=== PATIENT | female | born 1970 | race Caucasian/White ===

== ENCOUNTER 2016-05-22 17:51 | Emergency (ER) | payer OTHER | END 2016-05-22 18:49 | disposition left against medical advice (07) | LOC: UCCORT 17:51 | DX: Z53.21 Procedure and treatment not carried out due to patient leaving prior to being seen by health care provider (principal) ==

== ENCOUNTER 2016-05-24 09:47 | Emergency (ER) | payer OTHER ==
[2016-05-24 10:47] VITALS: BP 131/72
[2016-05-24] MEDS ORDERED: Ketorolac INJ* 30 MG/ML 1 ML VIAL IM ONE (10:58)
--- NOTE | 2016-05-24 11:05 | UC ---
Back Pain HPI - HPI Summary HPI Summary: Patient lifted a large dog 2 days aog, aggrevated her old back injury. felt radiating pain down left leg, went to chiropractor yesterday and the numbness has improved, pain remains along the low back bilaterally, hard to put weight on left leg. - History of Current Complaint Chief Complaint: UCBackPain Stated Complaint: BACK INJURY 05/21 Time Seen by Provider: 05/24/16 10:55 Hx Obtained From: Patient Hx Last Menstrual Period: 04/29/16 ?: No Onset/Duration: Sudden Onset, Lasting Days Timing: Constant Severity Initially: Severe Severity Currently: Moderate Pain Intensity: 6 Pain Scale Used: 0-10 Numeric Back Pain: Is Discrete @ - low back Character: Dull, Throbbing, Burning Aggravating: Movement Alleviating: Rest Associated Signs And Symptoms: Positive: Weakness - Risk Factors AAA Risk Factors: Negative TAD Risk Factors: Negative Cauda Equina Risk Factors: Negative Epidural Abscess Risk Factors: Negative - Allergies/Home Medications Allergies/Adverse Reactions: Allergies Allergy/AdvReac Type Severity Reaction Status Date / Time Sulfa Drugs Allergy Severe edema, Verified 05/24/16 10:37 discoloration, hives Bee Venom Allergy Anaphylatic Verified 05/24/16 10:37 Shock PMH/Surg Hx/FS Hx/Imm Hx Previously Healthy: Yes Endocrine History Of: Denies: Diabetes, Thyroid Disease, Hyperthyroidism, Hypothyroidism, Dyslipidemia Cardiovascular History Of: Denies: Cardiac Disorders, Hypertension, Pacemaker/ICD, Myocardial Infarction , Congestive Heart Failure, Atrial Fibrillation, Deep Vein Thrombosis, Bleeding Disorders Respiratory History Of: Denies: COPD, Asthma, Bronchitis, Pneumonia, Pulmonary Embolism GI/ History Of: Reports: Gastroesophageal Reflux Denies: Ulcer, Gastrointestinal Bleed, Gall Bladder Disease, Kidney Stones, Diverticulitis, Renal Disease, Urosepsis Neurological History Of: Reports: Migraine - X fall Denies: TIA, CVA, Dementia, Seizures Psychological History Of: Reports: Anxiety - ON MEDICATION FOR, Depression - ON MEDICATION FOR Denies: Bipolar Disorder, Schizophrenia, Post Traumatic Stress Disorder Cancer History Of: Denies: Lung Cancer, Colorectal Cancer, Breast Cancer, Prostate Cancer, Cervical Cancer Other History Of: Negative For: HIV, Hepatitis B, Hepatitis C, Anticoagulant Therapy - Surgical History Surgical History: Yes Surgery Procedure, Year, and Place: 2009 LAPAROSCOPIC CHOLECYSTECTOMY, [facility]. 2011 OVA(EGG) RETRIEVAL- SEDATION, [place]. WISDOM TEETH REMOVED, OFFICE. 2012 BALLOON SINUS SURGERY, [facility] – [place]. RIGHT HAND SX--2012 - Family History Known Family History: Positive: None, Hypertension, Diabetes - Social History Alcohol Use: Rare Substance Use Type: None Smoking Status (MU): Former Smoker Type: Cigarettes Amount Used/How Often: 1/2 PPD Length of Time of Smoking/Using Tobacco: 8 Years Have You Smoked in the Last Year: No When Did the Patient Quit Smoking/Using Tobacco: 2000 - Immunization History Most Recent Influenza Vaccination: Not the Review of Systems Constitutional: Negative Skin: Negative Eyes: Negative ENT: Negative Respiratory: Negative Cardiovascular: Negative Gastrointestinal: Negative Genitourinary: Negative Motor: Negative Neurovascular: Negative Musculoskeletal: Arthralgia, Decreased ROM - left leg, Myalgia Neurological: Negative Psychological: Negative All Other Systems Reviewed And Are Negative: Yes Physical Exam Triage Information Reviewed: Yes Appearance: Well-Nourished, Ill-Appearing, Pain Distress Vital Signs: Initial Vital Signs Temp 98 F 05/24/16 10:39 Pulse 94 05/24/16 10:39 Resp 20 05/24/16 10:39 BP 131/72 05/24/16 10:39 Pulse Ox 98 05/24/16 10:39 Vital Signs Reviewed: Yes Eye Exam: Normal Eyes: Positive: Conjunctiva Clear ENT Exam: Normal ENT: Positive: Normal ENT inspection, Hearing grossly normal, Pharynx normal, TMs normal Dental Exam: Normal Neck exam: Normal Respiratory Exam: Normal Cardiovascular Exam: Normal Abdominal Exam: Normal Musculoskeletal: Positive: No Edema, Strength Limited @ - with any pressure on right leg, ROM Limited @ - lumbar back flex and ext, Other: - pain along the lumbar spinous process Neurological: Positive: Alert, Muscle Tone Normal Psychological Exam: Normal Skin Exam: Normal Back Pain Course/Dx - Course Course Of Treatment: hx obtained, exam performed, toradol given, xray ordered. - Differential Dx/Diagnosis Differential Diagnosis/HQI/PQRI: Fracture, Herniated Disc, Strain, Sprain Provider Diagnoses: DJD. Low back pain. OA Discharge - Discharge Plan Condition: Stable Disposition: HOME Patient Education Materials: Acute Low Back Pain (ED), Lower Back Exercises (ED ) Additional Instructions: You were given a shot of Toradol today, do not use Ibuprofen products until 7 pm , continue with tylenol as needed. I recommend light stretching and range of motion exercises and progress as tolerated. Follow up with your prmary physician if symptoms do not begin to resolve in a few days.
--- NOTE | 2016-05-24 11:21 | RAD ---
Indication: Low back pain radiating into the LEFT buttock for 3 days. Sudden onset of symptoms. Comparison: December 30, 2005 Technique: AP and lateral views lumbar sacral spine Report: Normal alignment. Negative for fracture. Mild L3-L4, mild L4-L5, and moderate L5-S1 disc space narrowing with interval progression of degenerative spondylosis compared with the 2005 exam. Facet joint osteoarthritis mild in severity most prominent at L3-L4 through L5-S1. Unremarkable paraspinal soft tissue contours. RIGHT upper quadrant surgical clips. IMPRESSION: Multilevel degenerative spondylosis and facet joint osteoarthritis with progression of disease compared with the 2006 exam. Negative for fracture or spondylolisthesis.
== END 2016-05-24 11:33 | disposition home or self-care (01) ==
LOC: UCCORT 09:47
DX: M51.36 Other intervertebral disc degeneration, lumbar region (principal); M47.816 Spondylosis without myelopathy or radiculopathy, lumbar region; M54.5 Low back pain; Z88.2 Allergy status to sulfonamides; Z87.891 Personal history of nicotine dependence
CPT/HCPCS: 72100; 96372; 99212; G0463; J1885

== ENCOUNTER 2016-09-09 12:25 | Emergency (ER) | payer OTHER ==
[2016-09-09 12:56] VITALS: BP 144/92
--- NOTE | 2016-09-09 13:06 | UC ---
Throat Pain/Nasal Cirilo HPI - HPI Summary HPI Summary: sinus pain and pressure x 2 weeks + pnd, sore throat , cough, no fever, no chills - History of Current Complaint Chief Complaint: UCRespiratory Stated Complaint: CHEST CONGESTION, COUGH Time Seen by Provider: 09/09/16 12:56 Hx Obtained From: Patient Hx Last Menstrual Period: 08/19/16 ?: No Onset/Duration: Gradual Onset, Lasting Weeks - 2, Still Present Severity: Moderate Cough: Nonproductive Associated Signs & Symptoms: Positive: Sinus Discomfort, Nasal Discharge. Negative: Drooling, Wheezing, Hoarseness, Fever, Vomiting, Rash - Allergies/Home Medications Allergies/Adverse Reactions: Allergies Allergy/AdvReac Type Severity Reaction Status Date / Time Sulfa Drugs Allergy Severe edema, Verified 09/09/16 12:47 discoloration, hives Bee Venom Allergy Anaphylatic Verified 09/09/16 12:47 Shock Home Medications: Home Medications Naproxen 500 mg PO BID PRN 09/09/16 [History Confirmed 09/09/16] PMH/Surg Hx/FS Hx/Imm Hx Previously Healthy: Yes Other History Of: Negative For: HIV, Hepatitis B, Hepatitis C, Anticoagulant Therapy - Surgical History Surgical History: Yes Surgery Procedure, Year, and Place: 2009 LAPAROSCOPIC CHOLECYSTECTOMY, [facility]. 2011 OVA(EGG) RETRIEVAL- SEDATION, [place]. WISDOM TEETH REMOVED, OFFICE. 2012 BALLOON SINUS SURGERY, [facility] – [place]. RIGHT HAND SX--2012 - Family History Known Family History: Positive: None, Hypertension, Diabetes - Social History Alcohol Use: Rare Substance Use Type: None Smoking Status (MU): Former Smoker Type: Cigarettes Amount Used/How Often: 1/2 PPD Length of Time of Smoking/Using Tobacco: 8 Years Have You Smoked in the Last Year: No When Did the Patient Quit Smoking/Using Tobacco: 2000 - Immunization History Most Recent Influenza Vaccination: None 2016 Most Recent Tetanus Shot: UTD Most Recent Pneumonia Vaccination: N/A Review of Systems Constitutional: Negative Skin: Negative Eyes: Negative ENT: Sore Throat, Nasal Discharge Respiratory: Cough Cardiovascular: Negative Gastrointestinal: Negative All Other Systems Reviewed And Are Negative: Yes Physical Exam Triage Information Reviewed: Yes Appearance: Well-Appearing, No Pain Distress, Well-Nourished Vital Signs: Initial Vital Signs Temp 97 F 09/09/16 12:48 Pulse 86 09/09/16 12:48 Resp 16 09/09/16 12:48 BP 144/92 09/09/16 12:48 Pulse Ox 99 09/09/16 12:48 Vital Signs Reviewed: Yes Eyes: Positive: Conjunctiva Clear ENT: Positive: Normal ENT inspection, Hearing grossly normal, Nasal congestion, Nasal drainage, TMs normal. Negative: Pharyngeal erythema Neck: Positive: Supple, Nontender, No Lymphadenopathy Respiratory: Positive: Chest non-tender, Lungs clear, Normal breath sounds Cardiovascular: Positive: RRR, No Murmur, Pulses Normal Skin Exam: Normal Throat Pain/Nasal Course/Dx - Differential Dx/Diagnosis Provider Diagnoses: sinusitis Discharge - Discharge Plan Condition: Stable Disposition: HOME Prescriptions: Amoxicillin/Clavulanate TAB* [Augmentin TAB 875*] 875 mg PO BID #20 tab Fluconazole [Diflucan 150 MG (NF)] 150 mg PO ONCE #1 tab Patient Education Materials: Sinusitis (ED) Referrals: Benji Torres MD [Primary Care Provider] - If Needed
== END 2016-09-09 13:10 | disposition home or self-care (01) ==
LOC: UCCORT 12:25
DX: J32.9 Chronic sinusitis, unspecified (principal); Z87.891 Personal history of nicotine dependence; Z88.2 Allergy status to sulfonamides
CPT/HCPCS: 99212; G0463

== ENCOUNTER 2017-03-07 17:13 | Emergency (ER) | payer BC, OTHER ==
[2017-03-07 19:15] VITALS: BP 131/70
[2017-03-07] MEDS ORDERED: Ondansetron ODT TAB* 4 MG PO ONE (19:53)
--- NOTE | 2017-03-07 19:58 | ED ---
Abdominal Pain/Female - HPI Summary HPI Summary: 47 yr old with 3 days of NV, and some diarrhea. She states her upper abdomen, back and neck sore from vomiting. She denies fever. She states she has been urinating without trouble. 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 She has no pain when seated now. Discomfort in back and neck with ROM. No CVA pain. She does not feel it is possible to be . Denies urinary symptoms. Denies headache, photophobia, neck stiffness. She denies having trouble walking or being off balance. denies ear pain. - History of Current Complaint Chief Complaint: UCGI Stated Complaint: NAUSEA/FATIGUE Time Seen by Provider: 03/07/17 19:24 Hx Last Menstrual Period: 03/01/17 Allergies/Adverse Reactions: Allergies Allergy/AdvReac Type Severity Reaction Status Date / Time Sulfa Drugs Allergy Severe edema, Verified 03/07/17 19:10 discoloration, hives Bee Venom Allergy Anaphylatic Verified 03/07/17 19:10 Shock Home Medications: Home Medications BuPROPion XL* [Bupropion XL*] 300 mg PO QAM 03/07/17 [History Confirmed 03/07/17 ] Omeprazole CAP* [Prilosec CAP* 20 MG] 20 mg PO QAM 03/07/17 [History Confirmed 03/07/17] PMH/Surg Hx/FS Hx/Imm Hx Endocrine/Hematology History: Denies: Hx Anticoagulant Therapy, Hx Diabetes, Hx Thyroid Disease Cardiovascular History: Denies: Hx Congestive Heart Failure, Hx Deep Vein Thrombosis, Hx Hypertension , Hx Myocardial Infarction, Hx Pacemaker/ICD Respiratory History: Denies: Hx Asthma, Hx Chronic Obstructive Pulmonary Disease (COPD), Hx Lung Cancer, Hx Pneumonia, Hx Pulmonary Embolism GI History: Reports: Hx Gastroesophageal Reflux Disease - ON MEDICATION, Hx Hiatal Hernia Denies: Hx Gall Bladder Disease, Hx Gastrointestinal Bleed, Hx Ulcer, Hx Urosepsis History: Denies: Hx Kidney Stones, Hx Renal Disease Musculoskeletal History: Reports: Hx Tendonitis - RIGHT WRIST Sensory History: Denies: Hx Contacts or Glasses, Hx Hearing Aid Opthamlomology History: Denies: Hx Contacts or Glasses Neurological History: Reports: Hx Migraine - X fall Denies: Hx Dementia, Hx Seizures, Hx Transient Ischemic Attacks (TIA) Psychiatric History: Reports: Hx Anxiety - ON MEDICATION FOR, Hx Depression - ON MEDICATION FOR Denies: Hx Schizophrenia, Hx Bipolar Disorder - Surgical History Surgery Procedure, Year, and Place: 2009 LAPAROSCOPIC CHOLECYSTECTOMY, [facility]. 2011 OVA(EGG) RETRIEVAL- SEDATION, [place]. WISDOM TEETH REMOVED, OFFICE. 2012 BALLOON SINUS SURGERY, [facility]. RIGHT HAND SX--2012 Hx Anesthesia Reactions: No Infectious Disease History: No Infectious Disease History: Denies: Hx Clostridium Difficile, Hx Hepatitis, Hx Human Immunodeficiency Virus (HIV), Hx of Known/Suspected MRSA, Hx Shingles, Hx Tuberculosis, Hx Known/ Suspected VRE, Hx Known/Suspected VRSA, History Other Infectious Disease, Traveled Outside the [place] in Last 30 Days - Family History Known Family History: Positive: None, Hypertension, Diabetes - Social History Alcohol Use: Rare Substance Use Type: Reports: None Smoking Status (MU): Former Smoker Type: Cigarettes Amount Used/How Often: 1/2 PPD Length of Time of Smoking/Using Tobacco: 8 Years Have You Smoked in the Last Year: No Review of Systems Constitutional: Negative Positive: Vomiting, Diarrhea, Nausea All Other Systems Reviewed And Are Negative: Yes Physical Exam Triage Information Reviewed: Yes Vital Signs On Initial Exam: Initial Vitals Temp Pulse Resp BP Pulse Ox 98.4 F 76 16 131/70 99 03/07/17 19:06 03/07/17 19:06 03/07/17 19:06 03/07/17 19:06 03/07/17 19:06 Vital Signs Reviewed: Yes Appearance: Positive: Well-Appearing, No Pain Distress Skin: Positive: Warm Head/Face: Positive: Normal Head/Face Inspection Eyes: Positive: EOMI, [place] ENT: Positive: Pharynx normal, TMs normal Neck: Positive: Supple, Nontender. Negative: Nuchal Rigidity Respiratory/Lung Sounds: Positive: Clear to Auscultation, Breath Sounds Present Cardiovascular: Positive: RRR. Negative: Murmur Abdomen Description: Positive: Nontender Musculoskeletal: Positive: Strength/ROM Intact Neurological: Positive: Sensory/Motor Intact, Alert, Oriented to Person Place, Time, CN Intact II-III Psychiatric: Positive: Normal, Affect/Mood Appropriate - [place] Coma Scale Best Eye Response: 4 - Spontaneous Best Motor Response: 6 - Obeys Commands Best Verbal Response: 5 - Oriented Diagnostics - Vital Signs Vital Signs Temp Pulse Resp BP Pulse Ox 03/07/17 19:06 98.4 F 76 16 131/70 99 - Laboratory Lab Results: Lab Results 03/07/17 Range/Units 19:32 POC Urine Color Yellow POC Urine Clarity Clear POC Urine pH 5.5 (5-9) POC Ur Specif [place] 1.020 (1.010-1.030) POC Urine Protein Negative (Negative) POC Ur Glucose (UA) Negative (Negative) POC Urine Ketones Negative (Negative) POC Urine Blood 1+ H (Negative) POC Urine Nitrite Negative (Negative) POC Urine Bilirubin Negative (Negative) POC Urine Urobilinogen 1.0 (Negative) POC U Leukocyte Esteras Negative (Negative) Lab Statement: Any lab studies that have been ordered have been reviewed, and results considered in the medical decision making process. Abdominal Pain Fem Course/Dx - Course Course Of Treatment: 47 yr old with NV and some diarrhea. She has a non tender abodmen, non focal neuro exam and appears comfortable. DC home on zofran. To ER for any worsening symptoms. - Diagnoses Provider Diagnoses: Gastroenteritis Discharge - Discharge Plan Condition: Good Disposition: HOME Prescriptions: Ondansetron [Zofran 8 MG Odt] 8 mg PO TID PRN #10 tab PRN Reason: Nausea Patient Education Materials: Gastroenteritis (ED) Referrals: Benji Torres MD [Primary Care Provider] -
== END 2017-03-07 20:11 | disposition home or self-care (01) ==
LOC: UCCORT 17:13
DX: K52.9 Noninfective gastroenteritis and colitis, unspecified (principal); Z32.02 Encounter for pregnancy test, result negative; K21.9 Gastro-esophageal reflux disease without esophagitis; F41.9 Anxiety disorder, unspecified; F32.9 Major depressive disorder, single episode, unspecified; Z90.49 Acquired absence of other specified parts of digestive tract; Z88.2 Allergy status to sulfonamides; Z91.030 Bee allergy status; Z87.891 Personal history of nicotine dependence
CPT/HCPCS: 81003; 84702; 99212; A9270-GY; G0463

== ENCOUNTER 2017-04-01 13:29 | Emergency (ER) | payer BC ==
[2017-04-01 16:03] VITALS: BP 157/96
[2017-04-01] MEDS ORDERED: Ketorolac INJ* 30 MG/ML 1 ML VIAL IM ONE (16:13)
--- NOTE | 2017-04-01 16:19 | UC ---
Back Pain HPI - HPI Summary HPI Summary: L low back pain starting yesterday. Was lifting, pushing, pulling furniture the day before. Having trouble sitting down and changing positions. Denies numbness , tingling, or bowel/bladder problems. Hx of arthritis pain in back. - History of Current Complaint Chief Complaint: UCBackPain Stated Complaint: BACK PAIN Time Seen by Provider: 04/01/17 15:49 Hx Obtained From: Patient Hx Last Menstrual Period: 03/23/17 ?: No Onset/Duration: Sudden Onset Timing: Constant Severity Initially: Moderate Severity Currently: Moderate Back Pain: Is Discrete @ Character: Dull, Aching, Stiffness Aggravating Factor(s): Movement, Bending, Walking Alleviating Factor(s): Rest Associated Signs And Symptoms: Negative: Fever, Weakness, Numbness, Tingling, Abdominal Pain, Bladder Incontinence, Bowel Incontinence - Allergies/Home Medications Allergies/Adverse Reactions: Allergies Allergy/AdvReac Type Severity Reaction Status Date / Time Sulfa Drugs Allergy Severe edema, Verified 04/01/17 16:03 discoloration, hives Bee Venom Allergy Anaphylatic Verified 04/01/17 16:03 Shock PMH/Surg Hx/FS Hx/Imm Hx Previously Healthy: Yes GI/ History: Gastroesophageal Reflux Other History Of: Negative For: HIV, Hepatitis B, Hepatitis C, Anticoagulant Therapy - Surgical History Surgical History: Yes Surgery Procedure, Year, and Place: 2009 LAPAROSCOPIC CHOLECYSTECTOMY, [facility]. 2011 OVA(EGG) RETRIEVAL- SEDATION, [place]. WISDOM TEETH REMOVED, OFFICE. 2012 BALLOON SINUS SURGERY, [facility] [place]. RIGHT HAND SX--2012 - Family History Known Family History: Positive: None, Hypertension, Diabetes - Social History Occupation: Employed Full-time Alcohol Use: Rare Substance Use Type: None Smoking Status (MU): Former Smoker Type: Cigarettes Amount Used/How Often: 1/2 PPD Length of Time of Smoking/Using Tobacco: 8 Years Have You Smoked in the Last Year: No When Did the Patient Quit Smoking/Using Tobacco: 2000 - Immunization History Most Recent Influenza Vaccination: Not the 2016/2017 Season Most Recent Tetanus Shot: UTD Most Recent Pneumonia Vaccination: N/A Review of Systems Constitutional: Negative Skin: Negative Eyes: Negative ENT: Negative Respiratory: Negative Cardiovascular: Negative Gastrointestinal: Negative Genitourinary: Negative Motor: Negative Neurovascular: Negative Musculoskeletal: Arthralgia, Decreased ROM, Myalgia Neurological: Negative Psychological: Negative Is Patient Immunocompromised?: No All Other Systems Reviewed And Are Negative: Yes Physical Exam Triage Information Reviewed: Yes Appearance: Pain Distress - mod, Obese Vital Signs: Initial Vital Signs Temp 97.8 F 04/01/17 15:54 Pulse 93 04/01/17 15:54 Resp 18 04/01/17 15:54 BP 157/96 04/01/17 15:54 Vital Signs Reviewed: Yes Eye Exam: Normal Eyes: Positive: Conjunctiva Clear ENT Exam: Normal ENT: Positive: Normal ENT inspection, Hearing grossly normal, Pharynx normal, TMs normal Dental Exam: Normal Neck exam: Normal Neck: Positive: Supple, Nontender, No Lymphadenopathy Respiratory Exam: Normal Respiratory: Positive: Chest non-tender, Lungs clear, Normal breath sounds, No respiratory distress, No accessory muscle use Cardiovascular Exam: Normal Cardiovascular: Positive: RRR, No Murmur Musculoskeletal Exam: Normal Musculoskeletal: Positive: Strength Intact, ROM Intact, No Edema Neurological Exam: Normal, Other - DTRs 2+ BLE Neurological: Positive: Alert Psychological Exam: Normal Skin Exam: Normal Back Pain Course/Dx - Differential Dx/Diagnosis Provider Diagnoses: L low back strain Discharge - Discharge Plan Condition: Stable Disposition: HOME Patient Education Materials: Low Back Strain (ED), Lower Back Exercises (ED) Referrals: Benji Torres MD [Primary Care Provider] - Additional Instructions: You should see your primary care provider if you do not see good improvement within 10-14 days. If you develop fever, weakness, or trouble with bowel or bladder please go to the emergency department.
== END 2017-04-01 16:27 | disposition home or self-care (01) ==
LOC: UCCORT 13:29
DX: S39.012A Strain of muscle, fascia and tendon of lower back, initial encounter (principal); X50.0XXA Overexertion from strenuous movement or load, initial encounter; Y92.9 Unspecified place or not applicable; Z87.891 Personal history of nicotine dependence; Z88.2 Allergy status to sulfonamides
CPT/HCPCS: 96372; 99212; G0463; J1885

== ENCOUNTER 2017-05-24 09:11 | Emergency (ER) | payer BC ==
--- OUTSIDE RECORDS SUMMARY | 2017-05-24 11:32 | XMS REPORT ---
:1970 Author Organization [facility] Address [address] [place] [address] Care Team Providers Name Role Phone Bria Bernabe Unavailable Unavailable PROBLEMS Type Condition ICD9-CM Code PEQ03-HS Code Onset Condition SNOMED Code Dates Status Problem Leiomyoma of D25.9 Active 19099691 uterus, unspecified Problem Body mass index Z68.41 Active 685504151 (BMI) 40.0-44.9, adult Problem Oligomenorrhea, N91.5 Active [id number] unspecified ALLERGIES Substance Reaction Event Type Date Status Sulfa swelling/hives Drug Allergy May, Active ENCOUNTERS Encounter Location Date Diagnosis [facility] 103 July, OBGYN [place] [id number] [facility] 103 May, Body mass index (BMI ) OBGYN [facility] 40.0-44.9, adult Z68.41 and [place], [place] [id number] Leiomyoma of uterus, unspecified D25.9 [facility] 103 May, Body mass index (BMI ) OBGYN [facility] 40.0-44.9, adult Z68.41 and [place], [place] [id number] Oligomenorrhea, unspecified N91.5 [facility] 103 Apr, OBGYN [place], [place] [id number] [facility] 103 Jan, OBGYN [place] [id number] [facility] 103 Dec, OBGYN [place] [id number] [facility] 103 Dec, Encounter for gynecological OBGYN [facility] examination (general) [place], [place] [id number] (routine) with abnormal findings Z01.411 ; Encounter for screening mammogram for malignant neoplasm of breast Z12.31 and Body mass index (BMI) 40.0-44.9, adult Z68.41 [facility] 103 15 Dec, 2016 OBGYN [place] [id number] [facility] 103 22 Dec, 2015 Encounter for gynecological OBGYN [facility] examination (general) [place], [place] [id number] (routine) without abnormal findings Z01.419 ; Encounter for screening for malignant neoplasm of cervix Z12.4 and Encounter for screening mammogram for malignant neoplasm of breast Z12.31 [facility] 103 Dec, OBGYN [place] [id number] [facility] 103 Dec, OBGYN [place] [id number] [facility] 103 Dec, OBGYN [place] [id number] [facility] 103 17 Oct, 2014 [place]BGYN [place] [id number] [facility] 103 Dec, Breast Mass 611.72 [place]BGYN [place] [id number] [facility] 103 16 Dec, 2013 Breast Mass 611.72 [place]BG[place] [id number] [facility] 103 10 Dec, 2013 ROUTINE SPECIALTY THERAPIST EXAMINATION OBGYN [facility] V72.31 ; SCREEN MAMMOGRAM [place], [place] [id number] NEC V76.12 and Breast Mass 611.72 [facility] 103 May, Ovarian cyst NOS 620.2 OBGYN [place] [id number] [facility] 103 May, Ovarian cyst NOS 620.2 [place] [id number] [facility] 103 May, [place]BG[place] [id number] [facility] 103 May, [place]BG[place] [id number] [facility] 103 May, Ovarian cyst NOS 620.2 and OBGYN [facility] Scanty or infrequent [place], [place] [id number] menstruation 626.1 [facility] 103 May, Ovarian cyst NOS 620.2 [place] [id number] [facility] 103 Apr, [place]BG[place] [id number] [facility] 103 Apr, Ovarian cyst NOS 620.2 and OBGYN [facility] [place] [id number] menstruation 626.1 [facility] 103 Apr, Ovarian cyst NOS 620.2 [place] [id number] [facility] 103 Mar, [place]BG[place] [id number] [facility] 103 Mar, [place]BG[place] [id number] [facility] 103 Mar, [place]BG[place] [id number] [facility] 103 Mar, OBG[place] [id number] [facility] 103 Dec, [place]BGYN [place] [id number] [facility] 103 Dec, Ovarian cyst NOS 620.2 and OBGYN [facility] [place] [id number] menstruation 626.1 [facility] 103 Dec, Ovarian cyst NOS 620.2 OBGYN [place], [place] [id number] [facility] 103 Dec, ROUTINE SPECIALTY THERAPIST EXAMINATION [facility] V72.31 ; SCREEN MAMMOGRAM [place], [place] [id number] NEC V76.12 and ABN FINDINGS- ORGANS 793.5 [facility] [address] [facility] Jan, ROUTINE SPECIALTY THERAPIST EXAMINATION [facility] [address] [place], V72.31 [place] [id number] [facility] 103 Dec, OBGYN [place] [id number] [facility] 103 Oct, [place] [id number] [facility] 103 Oct, Suppression menstruation [facility] 626.8 ; [place], [place] [id number] TEST-POSITIVE V72.42 and PREG W POOR REPRODUCT HX V23.5 [facility] 103 May, [place] [id number] [facility] [address] [facility] Apr, Infertility, female, of [facility] [address] [place], other specified origin [place] [id number] 628.8 and Breast Mass 611.72 [facility] 103 Mar, ROUTINE SPECIALTY THERAPIST EXAMINATION [facility] V72.31 and Primary female [place], [place] [id number] infertility 628.9 [facility] 103 10 Jul, 2009 OBG[place] [id number] [facility] 103 May, HEMATURIA NOS 599.70 and OBGYN [facility] Dysuria 788.1 [place] [id number] [facility] 103 Apr, [place] [id number] [facility] 103 Apr, ROUT POSTPART FOLLOW -UP [facility] V24.2 ; NEC [place], [place] [id number] with NOS 765.10 ; TWINS W LOSS-DEL 651.31 and Depression, major NOS 296.00 [facility] 103 Apr, VAGINAL DISCHARGE 623.5 [place], [place] [id number] [facility] 103 Apr, [place] [id number] [facility] 103 Apr, ABN FINDINGS- ORGANS [facility] 793.5 and PELVIC PAIN 625.9 [place], [place] [id number] [facility] 103 Apr, PELVIC PAIN 625.9 [place] [id number] [facility] 103 Mar, ABN FINDINGS- ORGANS [facility] 793.5 ; PELVIC PAIN 625.9 ; [place], [place] [id number] Retained placenta without hemorrhage NOS, delivered with comp 667.02 and NEC, less than 500 grams 765.11 [facility] 103 Mar, [place] [id number] [facility] 103 Mar, SCREENING UNSPEC. [facility] V28.9 ; VAGINAL DISCHARGE [place] [id number] 623.5 and Incompetence of cervix 622.5 [facility] 103 Mar, US-SCREEN ANOMALIES V28.3 ; [facility] CERVICAL SHORTENING-ANTE [place], [place] [id number] 649.73 and Twin , antepartum condition or complication 651.03 [facility] 103 Mar, [place], [place] [id number] [facility] 103 Mar, Leukorrhea, not specified [facility] as infective 623.5 [place] [id number] [facility] 103 08 Mar, 2009 SCREENING UNSPEC. [facility] V28.9 and TWIN [place], [place] [id number] -ANTEPART 651.03 [facility] 103 24 Jan, 2009 Anemia complicating [facility] , antepartum [place], [place] [id number] 648.23 and Gastroesophageal reflux disease 530.81 [facility] 103 Jan, OBG[place] [id number] [facility] 103 Jan, [place] [id number] [facility] 103 Jan, [place] [id number] [facility] 103 Jan, TWIN - ANTEPART [facility] 651.03 [place] [id number] [facility] 103 Jan, OBGYN [place], [place] [id number] [facility] 103 Jan, SCREENING UNSPEC. [facility] V28.9 ; AMA, ANTEPARTUM [place], [place] [id number] 659.63 and OBESITY COMP PG ANTEPARTUM 649.13 [facility] 103 Jul, [place] [id number] [facility] 103 May, ROUTINE SPECIALTY THERAPIST EXAMINATION [facility] V72.31 [place] [id number] [facility] 103 Sep, [place] [id number] [facility] 103 Sep, Primary female infertility [facility] 628.9 ; Ovarian cyst NOS [place], [place] [id number] 620.2 and Lump in breast 611.72 [facility] 103 Sep, [place] [id number] [facility] 103 Sep, Lump in breast 611.72 ; [facility] Ovarian cyst NOS 620.2 and [place], [place] [id number] Primary female infertility 628.9 [facility] 103 Aug, OBG[place], [place] [id number] [facility] 103 Aug, Ovarian cyst NOS 620.2 [place] [id number] [facility] 103 July, Ovarian cyst NOS 620.2 [place] [id number] [facility] 103 July, Ovarian cyst NOS 620.2 [place] [id number] [facility] 103 May, [place] [id number] [facility] 103 May, Ovarian cyst NOS 620.2 [place] [id number] [facility] 103 May, Ovarian cyst NOS 620.2 [place] [id number] [facility] 103 May, ROUTINE SPECIALTY THERAPIST EXAMINATION [facility] V72.31 ; Lump in breast [place], [place] [id number] 611.72 and Ovarian cyst NOS 620.2 IMMUNIZATIONS No Known Immunizations SOCIAL HISTORY Never Assessed REASON FOR REFERRAL FUNCTIONAL STATUS PLAN OF CARE Activity Details Follow Up 3 month US and f/u Reason: Pending Test Ultrasound : Pelvis VITAL SIGNS Height 68 in 2017-05-22 Weight 280 lbs 2017-05-22 BMI 42.57 kg/m2 2017-05-22 Blood pressure systolic 114 mm Hg 2017-05-22 Blood pressure diastolic 84 mm Hg 2017-05-22 MEDICATIONS Medication Instructions Dosage Frequency Start End Date Duration Status Date Paxil 10 mg orally once a day 1 tab(s) 24h Active Prilosec 40 mg orally once a day 1 cap(s) 24h 30 day(s) Active Wellbutrin XL orally every 24 1 tab(s) Active 300 mg/24 hours hours PROCEDURES No Known procedures RESULTS No Results REASON FOR VISIT FU US MEDICAL (GENERAL) HISTORY Type Description Date Medical History 05/04/08 unsucsessful IVF Medical History reflux Medical History anxiety Medical History Tendinitis Surgical History Egg Retrieval - 5 eggs 2008 Surgical History selective reduction 01/19/09 Surgical History Core biopsy L breast (benign fibrosis) 07-09 Surgical History U/S guided vacuum D+C 2008 Surgical History IVF egg retrieval / Surgical History Hysterosalpingogram Surgical History Laporoscopy & Hysteroscopy 11-09-2009 Surgical History Galbladder removed 01-12-2010 Surgical History D&C 12/29/10 Surgical History sinus surgery 07/2012 Hospitalization History esophageal spasms 2006 Hospitalization History Pre term labor- demise - twins Hospitalization History see above
--- OUTSIDE RECORDS SUMMARY | 2017-05-24 11:32 | XMS REPORT ---
:1970 Author Name sound, ultra Care Team Providers Name Role Phone sound, ultra Unavailable Unavailable PROBLEMS Type Condition ICD9-CM Code [id number] Code Onset Condition SNOMED Code Dates Status Problem Leiomyoma of D25.9 Active 03288520 uterus, unspecified Problem Body mass index Z68.41 Active 965948446 (BMI) 40.0-44.9, adult Problem Oligomenorrhea, N91.5 Active [id number] unspecified ALLERGIES No Information ENCOUNTERS Encounter Location Date Diagnosis [facility] July, OBG[place], [place] [id number] [facility] May, Body mass index (BMI ) OBGYN [facility] 40.0-44.9, adult Z68.41 and [place], [place] [id number] Leiomyoma of uterus, unspecified D25.9 [facility] May, Body mass index (BMI ) OBGYN [facility] 40.0-44.9, adult Z68.41 and [place], [place] [id number] Oligomenorrhea, unspecified N91.5 [facility] Apr, [place], [place] [id number] [facility] Jan, [place], [place] [id number] [facility] Dec, [place]BG[place], [place] [id number] [facility] 103 Dec, Encounter for gynecological OBGYN [facility] examination (general) [place], [place] [id number] (routine) with abnormal findings Z01.411 ; Encounter for screening mammogram for malignant neoplasm of breast Z12.31 and Body mass index (BMI) 40.0-44.9, adult Z68.41 [facility] 15 Dec, 2016 [place]BG[place], [place] [id number] [place] [facility] 22 Dec, 2015 Encounter for gynecological OBGYN [facility] examination (general) [place], [place] [id number] (routine) without abnormal findings Z01.419 ; Encounter for screening for malignant neoplasm of cervix Z12.4 and Encounter for screening mammogram for malignant neoplasm of breast Z12.31 [place] [facility] 22 Dec, 2015 [place]BG[place] [id number] [place] [facility] Dec, [place] [id number] [place] [facility] Dec, [place] [id number] [place] [facility] Oct, [place], [place] [id number] [place] [facility] Dec, Breast Mass 611.72 [place] [id number] [place] [facility] 16 Dec, 2013 Breast Mass 611.72 [facility], [place] [id number] [place] [facility] 10 Dec, 2013 ROUTINE TARGET MAN EXAMINATION OBGYN [facility] V72.31 ; SCREEN MAMMOGRAM [place], [place] [id number] NEC V76.12 and Breast Mass 611.72 [place] [facility] May, Ovarian cyst NOS 620.2 [place] [id number] [place] [facility] May, Ovarian cyst NOS 620.2 [place] [id number] [place] [facility] May, [place] [id number] [place] [facility] May, [place] [id number] [place] [facility] May, Ovarian cyst NOS 620.2 and OBGYN [facility] Scanty or infrequent [place], [place] [id number] menstruation 626.1 [place] [facility] May, Ovarian cyst NOS 620.2 [place] [id number] [place] [facility] Apr, [place], [place] [id number] [place] [facility] Apr, Ovarian cyst NOS 620.2 and OBGYN [facility] Scanty or infrequent [place], [place] [id number] menstruation 626.1 [place] [facility] Apr, Ovarian cyst NOS 620.2 [place] [id number] [place] [facility] Mar, [place] [id number] [place] [facility] Mar, [place], [place] [id number] [place] [facility] Mar, [place] [id number] [place] [facility] Mar, [place] [id number] [place] [facility] Dec, [place] [id number] [place] [facility] 103 Dec, Ovarian cyst NOS 620.2 and OBGYN [facility] [place] or [place], [place] [id number] menstruation 626.1 [place] [facility] Dec, Ovarian cyst NOS 620.2 [place], [place] [id number] [place] [facility] Dec, ROUTINE TARGET MAN EXAMINATION OBGYN [facility] V72.31 ; SCREEN MAMMOGRAM [place], [place] [id number] NEC V76.12 and ABN FINDINGS- ORGANS 793.5 [facility] [address] [facility] Jan, ROUTINE TARGET MAN EXAMINATION [facility] [address] [place] [address], V72.31 [place] [id number] [facility] Dec, [place], [place] [id number] [place] [facility] Oct, [place], [place] [id number] [facility] Oct, Suppression [facility] 626.8 ; [place], [place] [id number] TEST-POSITIVE V72.42 and PREG W POOR REPRODUCT HX V23.5 [facility] May, [place] [id number] [address] Apr, Infertility, female, [facility] [address] [place], other specified origin [place] [id number] 628.8 and Breast Mass 611.72 [facility] Mar, ROUTINE TARGET MAN EXAMINATION [facility] V72.31 and Primary female [place], [place] [id number] infertility 628.9 [facility] July, [place]BG[place], [place] [id number] [facility] May, HEMATURIA NOS 599.70 and OBGYN [facility] Dysuria 788.1 [place], [place] [id number] [facility] Apr, [place], [place] [id number] [facility] Apr, ROUT POSTPART FOLLOW -UP [facility] V24.2 ; infant NEC [place], [place] [id number] with NOS 765.10 ; TWINS W LOSS-DEL 651.31 and Depression, major NOS 296.00 [facility] 12 Apr, 2009 VAGINAL DISCHARGE 623.5 OBN [place], [place] [id number] [facility] Apr, [place] [id number] [facility] Apr, ABN FINDINGS- ORGANS OBGYN [facility] 793.5 and PELVIC PAIN 625.9 [place], [place] [id number] [facility] Apr, PELVIC PAIN 625.9 O[place] [id number] [facility] Mar, ABN FINDINGS- ORGANS [facility] 793.5 ; PELVIC PAIN 625.9 ; [place], [place] [id number] Retained placenta without hemorrhage NOS, delivered with comp 667.02 and infant NEC, less than 500 grams 765.11 [facility] Mar, [place] [id number] [facility] Mar, SCREENING UNSPEC. [facility] V28.9 ; VAGINAL DISCHARGE [place], [place] [id number] 623.5 and Incompetence of cervix 622.5 [facility] Mar, US-SCREEN ANOMALIES V28.3 ; [facility] CERVICAL SHORTENING-ANTE [place], [place] [id number] 649.73 and Twin , antepartum condition or complication 651.03 [facility] Mar, [place] [id number] [facility] Mar, Leukorrhea, not specified [facility] as infective 623.5 [place], [place] [id number] [facility] 08 Mar, 2009 SCREENING UNSPEC. [facility] V28.9 and TWIN [place], [place] [id number] -ANTEPART 651.03 [place] [facility] 24 Jan, 2009 Anemia complicating [facility] , antepartum [place], [place] [id number] 648.23 and Gastroesophageal reflux disease 530.81 [place] [facility] Jan, [place] [id number] [place] [facility] Jan, [place], [place] [id number] [place] [facility] Jan, [place] [id number] [place] [facility] Jan, TWIN - ANTEPART [facility] 651.03 [place], [place] [id number] [place] [facility] Jan, [place] [id number] [facility] Jan, SCREENING UNSPEC. [facility] V28.9 ; AMA, ANTEPARTUM [place], [place] [id number] 659.63 and OBESITY COMP PG ANTEPARTUM 649.13 [place] [facility] Jul, [place] [id number] [facility] 16 May, 2008 ROUTINE TARGET MAN EXAMINATION [facility] V72.31 [place] [id number] [place] [facility] Sep, [place] [id number] [place] [facility] Sep, Primary female infertility [facility] 628.9 ; Ovarian cyst NOS [place], [place] [id number] 620.2 and Lump in breast 611.72 [place] [facility] Sep, [place] [id number] [place] [facility] Sep, Lump in breast 611.72 ; [facility] O[facility] NOS 620.2 and [place], [place] [id number] Primary female infertility 628.9 [place] [facility] Aug, [place], [place] [id number] [place] [facility] Aug, Ovarian cyst NOS 620.2 [place] [id number] [place] [facility] July, Ovarian cyst NOS 620.2 [place] [id number] [place] [facility] July, Ovarian cyst NOS 620.2 [place] [id number] [place] [facility] May, [place] [id number] [place] [facility] May, Ovarian cyst NOS 620.2 [place], [place] [id number] [place] [facility] May, Ovarian cyst NOS 620.2 [place] [id number] [place] [facility] May, ROUTINE TARGET MAN EXAMINATION [facility] V72.31 ; Lump in breast [place], [place] [id number] 611.72 and Ovarian cyst NOS 620.2 IMMUNIZATIONS No Known Immunizations SOCIAL HISTORY Never Assessed REASON FOR REFERRAL FUNCTIONAL STATUS PLAN OF CARE VITAL SIGNS MEDICATIONS Unknown Medications PROCEDURES Procedure Date Ordered Result Body Site TRANSVAGINAL US, NON-OB May 22, 2017 RESULTS Name Result Date Reference Range Ultrasound : Pelvis REASON FOR VISIT TARGET MAN US MEDICAL (GENERAL) HISTORY Type Description Date [...]
[2017-05-24 11:50] VITALS: BP 122/72
--- NOTE | 2017-05-24 11:55 | UC ---
Ear Complaint HPI - HPI Summary HPI Summary: 47 year old female with ear complaint. Right ear pain for 4 days . Has sinus pressure and post nasal drip as well. Denies hearing loss. No vertigo. no tinnitus. no fever. no n/v/d. no ST that is significant. no cough wheezing. took motrin and psuedophed and not working . PCP Neo went there 3 weeks ago and had sinus sx but was there for normal check up and now with sx that persist and concern for sinus infections . has seen ENT Ralph in the past - History of Current Complaint Chief Complaint: UCEar Stated Complaint: RT EAR COMPLAINT Time Seen by Provider: 05/24/17 11:47 Hx Obtained From: Patient Hx Last Menstrual Period: 05/14 Onset/Duration: Gradual Onset Severity Initially: Moderate Severity Currently: Moderate Pain Intensity: 6 - Allergies/Home Medications Allergies/Adverse Reactions: Allergies Allergy/AdvReac Type Severity Reaction Status Date / Time bee venom protein (honey bee) Allergy Anaphylatic Verified 05/24/17 11:41 Shock Sulfa (Sulfonamide Allergy Swelling Verified 05/24/17 11:39 Antibiotics) Of Face,Lips,& Throat Home Medications: Home Medications Ibuprofen TAB* [Motrin TAB* 600 MG] 600 mg PO Q4H PRN 05/24/17 [History Confirmed 05/24/17] PMH/Surg Hx/FS Hx/Imm Hx Previously Healthy: Yes GI/ History: Gastroesophageal Reflux Psychological History: Anxiety, Depression Other History Of: Negative For: HIV, Hepatitis B, Hepatitis C, Anticoagulant Therapy - Surgical History Surgical History: Yes Surgery Procedure, Year, and Place: 2009 LAPAROSCOPIC CHOLECYSTECTOMY, [facility]. 2011 OVA(EGG) RETRIEVAL- SEDATION, [place]. WISDOM TEETH REMOVED, OFFICE. 2012 BALLOON SINUS SURGERY, [facility] [place]. RIGHT HAND SX--2012 - Family History Known Family History: Positive: None, Hypertension, Diabetes - Social History Occupation: Employed Full-time - [employer] Alcohol Use: Rare Substance Use Type: None Smoking Status (MU): Former Smoker Type: Cigarettes Amount Used/How Often: 1/2 PPD Length of Time of Smoking/Using Tobacco: 8 Years Have You Smoked in the Last Year: No When Did the Patient Quit Smoking/Using Tobacco: 2000 - Immunization History Most Recent Influenza Vaccination: Not the Season Most Recent Tetanus Shot: UTD Most Recent Pneumonia Vaccination: N/A Review of Systems Constitutional: Negative Skin: Negative Eyes: Negative ENT: Ear Ache, Nasal Discharge, Sinus Congestion, Sinus Pain/Tenderness Respiratory: Negative Cardiovascular: Negative Gastrointestinal: Negative Genitourinary: Negative Motor: Negative Neurovascular: Negative Musculoskeletal: Negative Neurological: Negative Psychological: Negative Is Patient Immunocompromised?: No All Other Systems Reviewed And Are Negative: Yes Physical Exam Triage Information Reviewed: Yes Appearance: Well-Appearing, No Pain Distress, Well-Nourished Vital Signs: Initial Vital Signs Temp 98.1 F 05/24/17 11:44 Pulse 68 05/24/17 11:44 Resp 20 05/24/17 11:44 BP 122/72 05/24/17 11:44 Pulse Ox 100 05/24/17 11:44 Vital Signs Reviewed: Yes Eye Exam: Normal ENT Exam: Normal ENT: Positive: Nasal congestion, TM bulging - right, TM dull, Sinus tenderness. Negative: TM red, Tonsillar swelling, Tonsillar exudate Dental Exam: Normal Neck exam: Normal Neck: Positive: 1 Respiratory Exam: Normal Cardiovascular Exam: Normal Musculoskeletal Exam: Normal Neurological Exam: Normal Psychological Exam: Normal Skin Exam: Normal Ear Complaint Course/Dx - Course Course Of Treatment: Treat as viral at this time. Start flonase , astelin, decongestant and if sx progress and worsen in the next 3-4 days then at that time start antibiotics and also to restart the netti pot - Differential Dx/Diagnosis Differential Diagnosis/HQI/PQRI: Otitis Externa, Otitis Media, Perforated TM, URI Provider Diagnoses: viral URI/ AOM. Viral sinusitis Discharge - Discharge Plan Condition: Good Disposition: HOME Prescriptions: Amoxicillin/Clavulanate TAB* [Augmentin TAB 875*] 875 mg PO BID #20 tab Azelastine 0.15% NASAL(NF) [Astepro 0.15% NASAL (NF)] 1 spray NASAL BID #1 spray Patient Education Materials: Serous Otitis Media (ED) Referrals: Benji Torres MD [Primary Care Provider] - 4 Days Additional Instructions: Start allergy med, flonase and use astelin as well as netti pot and if symptoms persist or worsen in the next 3--4 days then start the antibiotic also follow up with ENT if any concerns
== END 2017-05-24 12:32 | disposition home or self-care (01) ==
LOC: UCCORT 09:11
DX: J06.9 Acute upper respiratory infection, unspecified (principal); H66.91 Otitis media, unspecified, right ear; J32.8 Other chronic sinusitis; Z87.891 Personal history of nicotine dependence; K21.9 Gastro-esophageal reflux disease without esophagitis
CPT/HCPCS: 99212; G0463

== ENCOUNTER 2017-07-25 14:15 | Emergency (ER) | payer BC, MEDICAID ==
[2017-07-25 14:47] VITALS: BP 140/98
--- NOTE | 2017-07-25 15:09 | UC ---
Back Pain HPI - HPI Summary HPI Summary: Patient lifted her 160 pound mastiff into a car about a week ago and since then has had worsening right low back pain. Pain sometimes wraps around to the front of her right leg. She denies numbness/tingling. No saddle anesthesia. - History of Current Complaint Chief Complaint: UCBackPain Stated Complaint: lower back pain Time Seen by Provider: 07/25/17 14:38 Hx Obtained From: Patient Hx Last Menstrual Period: 07/02/17 Onset/Duration: Sudden Onset, Lasting Days, Still Present Timing: Constant Severity Initially: Moderate Severity Currently: Moderate Pain Intensity: 9 Pain Scale Used: 0-10 Numeric Back Pain: Is Discrete @ - RIGHT LOW BACK Character: Sharp Aggravating Factor(s): Movement Alleviating Factor(s): Nothing Associated Signs And Symptoms: Positive: Negative - Allergies/Home Medications Allergies/Adverse Reactions: Allergies Allergy/AdvReac Type Severity Reaction Status Date / Time bee venom protein (honey bee) Allergy Anaphylatic Verified 07/10/17 11:53 Shock Sulfa (Sulfonamide Allergy Swelling Verified 07/10/17 11:53 Antibiotics) Of Face,Lips,& Throat PMH/Surg Hx/FS Hx/Imm Hx GI/ History: Gastroesophageal Reflux Psychological History: Anxiety, Depression Other History Of: Negative For: HIV, Hepatitis B, Hepatitis C, Anticoagulant Therapy - Surgical History Surgical History: Yes Surgery Procedure, Year, and Place: 2009 [facility] 2011 [place]VA[place]EGG[place] RETRIEVAL- SEDATION, [place]. WISDOM TEETH REMOVED, OFFICE. 2012 BALLOON SINUS SURGERY, [facility] [place]. RIGHT HAND SX--2012 - Family History Known Family History: Positive: Hypertension, Diabetes - Social History Alcohol Use: Rare Substance Use Type: None Smoking Status (MU): Former Smoker Type: Cigarettes Amount Used/How Often: 1/2 PPD Length of Time of Smoking/Using Tobacco: 8 Years Have You Smoked in the Last Year: No When Did the Patient Quit Smoking/Using Tobacco: 2000 - Immunization History Most Recent Influenza Vaccination: Not the 2016/2017 Season Most Recent Tetanus Shot: UTD Most Recent Pneumonia Vaccination: N/A Vaccination Up to Date: Yes Review of Systems Constitutional: Negative Skin: Negative Respiratory: Negative Cardiovascular: Negative Gastrointestinal: Negative Musculoskeletal: Decreased ROM, Myalgia All Other Systems Reviewed And Are Negative: Yes Physical Exam Triage Information Reviewed: Yes Appearance: Well-Nourished, Pain Distress - MILD Vital Signs: Initial Vital Signs Temp 97.6 F 07/25/17 14:36 Pulse 109 07/25/17 14:36 Resp 20 07/25/17 14:36 BP 140/98 07/25/17 14:36 Pulse Ox 100 07/25/17 14:36 Vital Signs Reviewed: Yes Eyes: Positive: Conjunctiva Clear ENT: Positive: Hearing grossly normal Neck: Positive: Supple Respiratory: Positive: No respiratory distress, No accessory muscle use Cardiovascular: Positive: Pulses Normal Abdomen Description: Positive: Soft Musculoskeletal: Positive: No Edema, ROM Limited @ - BACK, Other: - TTP RIGHT LUMBAR PARASPINOUS MUSCLES Neurological: Positive: Alert Psychological: Positive: Age Appropriate Behavior Skin: Negative: rashes Back Pain Course/Dx - Differential Dx/Diagnosis Provider Diagnoses: ACUTE LOW BACK PAIN Discharge - Sign-Out/Discharge Documenting (check all that apply): Discharge/Admit/Transfer - Discharge Plan Condition: Stable Disposition: HOME Prescriptions: Cyclobenzaprine TAB* [Flexeril TAB*] 10 mg PO BID PRN #30 tab PRN Reason: Pain HYDROcodone/ACETAMIN 5-325 MG* [[place] 5-325 TAB*] 1 tab PO Q6H PRN #10 tab MDD 4 PRN Reason: Pain Naproxen [Naproxen EC] 500 mg PO BID PRN #30 tab PRN Reason: Pain Patient Education Materials: Low Back Strain (ED) Referrals: Benji Torres MD [Primary Care Provider] - 1 Week Additional Instructions: BE SURE TO GO THROUGH SLOW RANGE OF MOTION AND STRETCHING EXERCISES DAILY YOU ARE ABLE TO PREVENT STIFFENING UP AND MAKING THE DISCOMFORT WORSE. GO TO THE ER WITHOUT FAIL IF YOU DEVELOP WORSENING NUMBNESS/TINGLING IN YOUR LEGS, NUMBNESS IN THE GENITAL REGION, LOSS OF BOWEL/BLADDER CONTROL, INTOLERABLE PAIN OR ANY OTHER CONCERNING SYMPTOMS. BE AWARE THAT COADMINISTRATION OF FLEXERIL AND SSRI CAN INCREASE YOUR RISK OF SEROTONIN SYNDROME. IF YOU DEVELOP AGITATION, CONFUSION, SWEATS, TREMOR, MUSCLE STIFFNESS GO DIRECTLY TO THE ER - Billing Disposition and Condition Condition: STABLE Disposition: HOME
== END 2017-07-25 15:20 | disposition home or self-care (01) ==
LOC: UCCORT 14:15
DX: M54.5 Low back pain (principal); Z87.891 Personal history of nicotine dependence; Z88.2 Allergy status to sulfonamides
CPT/HCPCS: 99212; G0463

== ENCOUNTER 2017-10-03 20:29 | Emergency (ER) | payer BC, MEDICAID ==
[2017-10-03 20:50] VITALS: BP 143/81
[2017-10-03] MEDS ORDERED: HYDROcodone/ACETAMIN 5-325 MG* 1 TAB PO ONE ×2 (20:57→21:38)
--- NOTE | 2017-10-03 20:59 | UC ---
Elbow Pain - HPI Summary HPI Summary: Patient tripped and fell tonight at home landing on her left elbow. Complaints of pain in her left elbow,and does have some abrasions on her left knee - History of Current Complaint Chief Complaint: UCUpperExtremity Stated Complaint: LEFT ELBOW INJURY Time Seen by Provider: 10/03/17 20:52 Hx Obtained From: Patient Hx Last Menstrual Period: 08/19/17 ?: No Mechanism of Injury: fall Onset/Duration: Minutes, Traumatic, Still Present Pain Intensity: 9 Pain Scale Used: 0-10 Numeric Location Of Pain: Is Discrete @ - left elbow Character: Aching Aggravating Factor(s): Movement Alleviating Factor(s): Rest, Ice Associated Signs And Symptoms: Positive: Swelling - Allergies/Home Medications Allergies/Adverse Reactions: Allergies Allergy/AdvReac Type Severity Reaction Status Date / Time bee venom protein (honey bee) Allergy Anaphylatic Verified 10/03/17 20:45 Shock Sulfa (Sulfonamide Allergy Swelling Verified 10/03/17 20:45 Antibiotics) Of Face,Lips,& Throat PMH/Surg Hx/FS Hx/Imm Hx Previously Healthy: No GI/ History: Gastroesophageal Reflux Psychological History: Depression Other History Of: Negative For: HIV, Hepatitis B, Hepatitis C, Anticoagulant Therapy - Surgical History Surgical History: Yes Surgery Procedure, Year, and Place: 2009 [facility] 2011 OVA(EGG) RETRIEVAL- SEDATION, [place]. WISDOM TEETH REMOVED, OFFICE. 2012 [place]ALLOON SIN[place] SURGERY[place] [facility] [place]2012 - Family History Known Family History: Positive: Hypertension, Diabetes - Social History Occupation: Employed Full-time Lives: With Family Alcohol Use: Rare Substance Use Type: None Smoking Status (MU): Former Smoker Type: Cigarettes Amount Used/How Often: 1/2 PPD Length of Time of Smoking/Using Tobacco: 8 Years Have You Smoked in the Last Year: No When Did the Patient Quit Smoking/Using Tobacco: 2000 - Immunization History Most Recent Influenza Vaccination: Not the 2017/2017 Season Most Recent Tetanus Shot: UTD Most Recent Pneumonia Vaccination: N/A Vaccination Up to Date: Yes Review of Systems Constitutional: Negative Skin: Negative Eyes: Negative ENT: Negative Respiratory: Negative Cardiovascular: Negative Gastrointestinal: Negative Genitourinary: Negative Motor: Negative Neurovascular: Negative Musculoskeletal: Arthralgia - Left elbow humerus and forearm Neurological: Negative Psychological: Negative Is Patient Immunocompromised?: No All Other Systems Reviewed And Are Negative: Yes Physical Exam Triage Information Reviewed: Yes Appearance: Well-Appearing, Pain Distress, Obese Vital Signs: Initial Vital Signs Temp 98.8 F 10/03/17 20:46 Pulse 96 10/03/17 20:46 Resp 18 10/03/17 20:46 BP 143/81 10/03/17 20:46 Pulse Ox 100 10/03/17 20:46 Vital Signs Reviewed: Yes Eye Exam: Normal Eyes: Positive: Conjunctiva Clear ENT Exam: Normal ENT: Positive: Normal ENT inspection, Hearing grossly normal, Pharynx normal. Negative: Nasal congestion, Trismus, Muffled voice, Hoarse voice Dental Exam: Normal Neck exam: Normal Neck: Positive: Supple, Nontender, No Lymphadenopathy Respiratory Exam: Normal Respiratory: Positive: Chest non-tender, No respiratory distress, No accessory muscle use Cardiovascular Exam: Normal Cardiovascular: Positive: RRR, Pulses Normal, Brisk Capillary Refill Musculoskeletal Exam: Other Musculoskeletal: Positive: Strength Limited @ - Left elbow, ROM Limited @ - Left elbow Neurological Exam: Normal Neurological: Positive: Alert, Muscle Tone Normal Psychological Exam: Normal Skin Exam: Other Skin: Positive: Other - superficial abrasions on left knee tetanus is up-to-date Diagnostics - Radiology No standard instances Xray Interpretation: Positive (See Comments) - Patient Name: ALOK COOPER Medical Record#: [id number] Ordering Physician: Luiza Duong NP Acct.#: [id number] : 1969 Age: 47 Sex: F Location: [facility] Exam Date: 10/03/172055 ADM Status: REG ER Order Information: ELBOW LEFT 3+VWS Accession Number: [id number] CPT: 39593 INDICATION: Left elbow injury COMPARISON: None TECHNIQUE: AP, lateral, and oblique views were obtained. FINDINGS: There is a mildly impacted fracture the radial head. No other fractures are evident. The elbow articulates normally. There is a joint effusion compatible with hemarthrosis. IMPRESSION: RADIAL HEAD FRACTURE WITH JOINT EFFUSION. <Electronically signed by Familia Nunez MD in OV> 10/03/172122 Dictated By: Familia Nunez MD Dictated Date/Time: 10/03/172122 Transcribed Date/Time: 10/03/172121 Copy to: CC:Benji Larson Jr, MD; Luiza Duong OFFAL ROLLER; Zach Allen MD Imaging - [facility] Imaging - [facility] Imaging - [facility] [address] [place] [address] ph ) ph ([phone]) ph ([phone]) 1 of 1 Radiology Interpretation Completed By: ED Physician, Radiologist Elbow Pain Course/Dx - Course Course Of Treatment: Sling, rest ice elevation, pain control follow with Dr. Shine in the next 2-3 days - Differential Dx/Diagnosis Provider Diagnoses: Nondisplaced Left radial head fracture, elevated blood pressure without diagnosis of hypertension Discharge - Sign-Out/Discharge Documenting (check all that apply): Discharge/Admit/Transfer - Discharge Plan Condition: Stable Disposition: HOME Prescriptions: Hydrocodone/Acetaminophen [Hydrocodone-Acetamin 5-325 mg] 1 each PO Q4HR PRN # 20 tablet MDD 6 PRN Reason: Pain Patient Education Materials: Ibuprofen (By mouth), Elbow Fracture (ED), How to Use a Sling (ED), Hypertension (ED), R.I.C.E. Treatment (ED) Forms: *Work Release Referrals: Benji Larson MD [Primary Care Provider] - 2 Weeks (BP re-check) John Shine MD [Medical Doctor] - 2 Days - Billing Disposition and Condition Condition: STABLE Disposition: Home
--- NOTE | 2017-10-03 21:27 | RAD ---
INDICATION: Left elbow injury COMPARISON: None TECHNIQUE: AP, lateral, and oblique views were obtained. FINDINGS: There is a mildly impacted fracture the radial head. No other fractures are evident. The elbow articulates normally. There is a joint effusion compatible with hemarthrosis. IMPRESSION: RADIAL HEAD FRACTURE WITH JOINT EFFUSION.
--- NOTE | 2017-10-03 21:29 | RAD ---
INDICATION: Left humerus pain COMPARISON: None TECHNIQUE: AP and lateral views were obtained. FINDINGS: The bony structures, joint spaces, and soft tissues are normal for age. IMPRESSION: NO ACUTE HUMERAL FRACTURE
--- NOTE | 2017-10-03 21:29 | RAD ---
INDICATION: Left forearm injury COMPARISON: Left elbow same date TECHNIQUE: AP, lateral, and oblique views were obtained. FINDINGS: There is no acute forearm fracture. There is a mildly impacted fracture the radial head and there is no elbow joint effusion described in a separate report. There is mild proximal forearm soft tissue swelling as well. IMPRESSION: THERE IS NO FRACTURE OF THE FOREARM BUT THERE IS A RADIAL HEAD FRACTURE DESCRIBED ELSEWHERE.
== END 2017-10-03 22:02 | disposition home or self-care (01) ==
LOC: UCCORT 20:29
DX: S52.125A Nondisplaced fracture of head of left radius, initial encounter for closed fracture (principal); W01.0XXA Fall on same level from slipping, tripping and stumbling without subsequent striking against object, initial encounter; Y93.9 Activity, unspecified; Y92.009 Unspecified place in unspecified non-institutional (private) residence as the place of occurrence of the external cause; Z88.2 Allergy status to sulfonamides; Z87.891 Personal history of nicotine dependence
CPT/HCPCS: 99213; G0463

== ENCOUNTER 2018-03-25 09:26 | Emergency (ER) | payer MEDICAID, OTHER ==
[2018-03-25 11:29] VITALS: BP 133/80
--- NOTE | 2018-03-25 11:51 | UC ---
[facility] Dental HPI - History of Current Complaint Chief Complaint: UCDentalProblem Stated Complaint: ORAL COMPLAINT Time Seen by Provider: 03/25/18 11:22 Hx Obtained From: Patient Hx Last Menstrual Period: 03/05/18 ?: No Onset/Duration: Sudden Onset Severity: Severe Pain Intensity: 8 Related History: Previous Dental Care on Same Tooth - Allergies/Home Medications Allergies/Adverse Reactions: Allergies Allergy/AdvReac Type Severity Reaction Status Date / Time bee venom protein (honey bee) Allergy Anaphylatic Verified 03/25/18 11:25 Shock Sulfa (Sulfonamide Allergy Swelling Verified 03/25/18 11:25 Antibiotics) Of Face,Lips,& Throat PMH/Surg Hx/FS Hx/Imm Hx Previously Healthy: Yes Other History Of: Negative For: HIV, Hepatitis B, Hepatitis C, Anticoagulant Therapy - Surgical History Surgical History: Yes Surgery Procedure, Year, and Place: 2009 LAPAROSCOPIC [facility]OMY, [facility]. 2011 OVA(EGG) RETRIEVAL- SEDATION, [place]. WISDOM TEETH REMOVED, OFFICE. 2012 [place]OON SIN[place]GERY, [facility] [place] SX--2012 - Family History Known Family History: Positive: Hypertension, Diabetes - Social History Alcohol Use: Rare Substance Use Type: None Smoking Status (MU): Former Smoker Type: Cigarettes Amount Used/How Often: 1/2 PPD Length of Time of Smoking/Using Tobacco: 8 Years Have You Smoked in the Last Year: No When Did the Patient Quit Smoking/Using Tobacco: 2000 - Immunization History Most Recent Influenza Vaccination: Not the 2016/2017 Season Most Recent Tetanus Shot: UTD Most Recent Pneumonia Vaccination: N/A Vaccination Up to Date: Yes Review of Systems All Other Systems Reviewed And Are Negative: Yes Constitutional: Positive: Negative Skin: Positive: Negative Eyes: Positive: Negative ENT: Positive: Dental Pain Respiratory: Positive: Negative Cardiovascular: Positive: Negative Gastrointestinal: Positive: Negative Genitourinary: Positive: Negative Motor: Positive: Negative Neurovascular: Positive: Negative Musculoskeletal: Positive: Negative Neurological: Positive: Negative Psychological: Positive: Negative Is Patient Immunocompromised?: No Physical Exam Triage Information Reviewed: Yes Appearance: Well-Appearing, Well-Nourished, Pain Distress Vital Signs: Initial Vital Signs Temp 97.5 F 03/25/18 11:25 Pulse 80 03/25/18 11:25 Resp 18 03/25/18 11:25 BP 133/80 03/25/18 11:25 Pulse Ox 100 03/25/18 11:25 Vital Signs Reviewed: Yes Eye Exam: Normal ENT Exam: Normal ENT: Positive: Pharyngeal erythema, TMs normal Dental: Positive: Percussion Tenderness @ - over right maxillary sinus Neck exam: Normal Neck: Positive: Supple, Nontender, No Lymphadenopathy Respiratory Exam: Normal Respiratory: Positive: Chest non-tender, Lungs clear, Normal breath sounds Cardiovascular Exam: Normal Cardiovascular: Positive: RRR, No Murmur, Pulses Normal Abdominal Exam: Normal Abdomen Description: Positive: Nontender, No Organomegaly, Soft Bowel Sounds: Positive: Present Musculoskeletal Exam: Normal Musculoskeletal: Positive: Strength Intact, ROM Intact, No Edema Neurological Exam: Normal Psychological Exam: Normal Skin Exam: Normal Dental Complaint Course/Dx - Course Course Of Treatment: hx obtained,exam performed ,meds reviewed, treated for dental infection and pain - Differential Dx/Diagnosis Differential Diagnosis/Dx: Dental Abscess, Fractured Tooth, Gingivitis Provider Diagnosis: Dental infection Discharge - Sign-Out/Discharge Documenting (check all that apply): Patient Departure All imaging exams completed and their final reports reviewed: No Studies - Discharge Plan Condition: Stable Disposition: HOME Prescriptions: Clindamycin Cap(NF) [Clindamycin Cap 300 mg Cap(NF)] 300 mg PO TID #21 cap HYDROcodone/ACETAMIN 5-325 MG* [Garner 5-325 TAB*] 1 tab PO Q4H PRN #8 tab MDD 6 PRN Reason: Pain Referrals: Benji Torres MD [Primary Care Provider] - Additional Instructions: 1. take the medication as prescribed. 2. Follow up with the dentist in 2-3 days - Billing Disposition and Condition Condition: STABLE Disposition: Home - Attestation Statements Provider Attestation: I was available for consult. This patient was seen by the PRINCE. The patient was not presented to, seen by, or examined by me. -Agueda
== END 2018-03-25 12:06 | disposition home or self-care (01) ==
LOC: UCCORT 09:26
DX: K04.7 Periapical abscess without sinus (principal); Z88.2 Allergy status to sulfonamides; Z87.891 Personal history of nicotine dependence
CPT/HCPCS: 99212; G0463

== ENCOUNTER 2018-05-02 14:15 | Emergency (ER) | payer OTHER ==
--- OUTSIDE RECORDS SUMMARY | 2018-05-02 14:35 | XMS REPORT | Continuity of Care Document ---
:1970 External Reference #:[id number] Author Name Benji Torres MD Address [address] [place] [address] Care Team Providers Name Role Phone Benji Torres MD Care Team Information [employer] Unavailable Payers Type Date Identification Numbers Payment Provider Subscriber Expires: Policy Number: [id number] Medicaid ### >11 Nyla Shearer 2017 PayID: [id number] [address] [place] [address] Effective: 2017 Policy Number: [id number] [facility] Nyla Shearer PayID: [id number] [address] [place] [address] Advance Directives Description No Information Available Problems Date Description Provider Status Onset: 01/30/2014 Anxiety state Benji Torres MD Active Onset: 08/06/2013 Migraine without aura, not Benji Torres MD Active refractory Onset: 03/10/2011 Female infertility Benji Torres MD Active Onset: 02/04/2008 Gastroesophageal reflux disease Benji Torres MD Active Onset: 02/04/2008 Obesity Benji Torres MD Active Onset: 07/31/2006 Depressive disorder Benji Torres MD Active Onset: 12/27/2005 Carpal tunnel syndrome Benji Torres MD Active Onset: 12/27/2005 Hyperlipidemia screening Benji Torres MD Active Onset: 12/27/2005 Rosacea Benji Torres MD Active Onset: 12/27/2005 Tension-type headache Benji Torres MD Active Onset: 10/26/2015 Moderate recurrent major depression Benji Torres MD Active Onset: 10/26/2015 Pure hypercholesterolemia Benji Torres MD Active Onset: 10/31/2016 Allergic rhinitis Benji Torres MD Active Family History Description No Information Available Social History Type Date Description Comments Sex Unknown Marital Status Lives With Male 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 Active Medications Medication Date Status Form Strength Qnty SIG Indications Ordering Provider Meclizine HCL Active Tablets 25mg 30tabs take 1 R42 Digiovanna 019 tablet by Benji, mouth 3 MD times daily as needed for dizziness LEFT Velcro Active Dx : L M65.4 Digiovanna Thumb Spica 018 thumb/wrist , Benji, Splint tendonitis Naproxen Active Tablets 220mg OTC 2 pills M72.2 Digiovanna Sodium 018 twice a day , Benji, as needed MD for pain w/ food M25.542 Bupropion HCL 11/20/2016 Active Tablets ER 300mg 90tabs Take 1 F33.1 Digiovanna, ER (XL) 24HR Tablet By MD Benji Mouth Every Morning F41.1 Fluticasone 01/21/2016 Active Suspension 50mcg/Act 16units 1 spray H66.91 Digiovanna, Propionate each MD Benji nostril twice a day J30.9 Sumatriptan 08/06/2013 Active Tablets 50mg 12tabs 1 by mouth R51 Digiovanna, Succinate every day MD Benji as needed migraine ward, may repeat x1 as needed after 1 hour; max 2/day, 6 per week Alprazolam 05/05/2013 Active Tablets 1mg 30tabs 1 by mouth F41.1 Digiovanna, every day MD Benji as needed for anxiety Omeprazole 09/11/[address] 20mg 90caps Take 1 K21.9 Digiovanna, Capsule By MD Benji Mouth Daily Epipen 2-Benito Active Solution 0.3mg/0 use as 989.5 Oh Allergy Auto-Inject .3ML directed and Asthma for serious allergic reaction Paroxetine HCL Active Tablets 10mg 90tabs Take 1 F41.1 Digiovanna, Tablet By MD Benji Mouth Every Evening F33.1 Metronidazole Hx Tablets 500mg 10tabs 1 by mouth 2 Digiovan 018 - times a day for na, 5 days BenjiLoyd mcallister MD Hydrocodone-Acetamin Hx Tablets 5-325mg 30tabs 1/2 or 1 tab by S52.10 Digiovan ophen 018 - mouth every 4 1A na, hours as needed Shy Leblanc for severe arm pain Meloxicam Hx Tablets 15mg 90tabs Take One Tablet S52.10 Digiovan 018 - By Mouth Every 1A na, Day With Food as Shy Leblanc Needed For Arm Pain Prednisone Hx Tablets 20mg 10tabs 1 pill by mouth M65.4 Digiovan 018 - twice a day with na, food for 5 days BenjiLoyd mcallister MD Prednisone Hx Tablets 20mg 6tabs 1 pill by mouth M25.54 Digiovan 018 - twice a day with 2 na, food for 3 days BenjiLoyd mcallister MD Cetirizine HCL Hx Tablets 10mg 90tabs take one tablet J30.9 Digiovan 017 - by mouth every na, day as needed Shy Leblanc for allergies Metronidazole Hx Gel 0.75% 70gm 1 applicator Digiovan 017 - twice a day for na, 5 days Tere 017 , 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 Omeprazole Hx Capsules DR 20mg 30caps 1 by mouth twice K29.00 Digiovan 017 - every day na, Tere 017 , 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 Amoxicillin Hx Tablets 500mg 14tabs 1 by mouth twice H66.91 Xavier 016 - a day Nikunj 10/28/2 DO 016 Fluconazole Hx Tablets 150mg 1tabs 1 by mouth daily Xavier 016 - as needed Nikunj, DO 016 Doxycycline Hyclate Hx Capsules 100mg 20caps 1 pill by mouth 461.9 Digiovan 015 - twice a day for na, 10 days Heidi Leblanc MD Fluconazole Hx Tablets 150mg 1tabs one by mouth x1 Digiovan 014 - na, Tere 015 , 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 Meloxicam Hx Tablets 15mg 90tabs take one tablet M72.2 Digiovan 014 - by mouth every na, day with food as Loyd Leblanc Needed M25.542 Ondansetron 08/06/2013 - Hx Tablets 4mg 10tabs /2 Or 1 Digiovanna, HCL 08/02/2016 PO Q 8 H Benji Epperson MD prn N/V Flonase 04/09/2012 - Hx Suspension 50mcg/Act 1Units 1 spray H6 Xavier, 01/21/2016 each 6. DO Nikunj nostril 91 twice a day Ibuprofen 09/26/2011 - Hx Tablets 200mg 2 po q 4 Digiovanna, 04/16/2014 hours prn eBnji Epperson MD Foot Pain Aleve - Hx Capsules 220mg OTC 1 by mouth Unknown 01/25/2015 q12 hours as needed for pain Probiotics - Hx Capsules Unknown 1 by mouth Unknown 01/25/2015 every day Wellbutrin XL - Hx Tablets ER 300mg 30tabs 1 by mouth F3 Digiovanna, 11/20/2016 24HR every day 3. MD Benji in the 1 morning F41.1 Nasonex - Hx Suspension 50mcg/Act 2 sprays each Adriano 01/25/2015 nostril every Allergy and day Asthma Zyrtec Allergy - Hx Capsules 10mg 1 by mouth Adriano 05/06/2015 every day Allergy and Asthma Azelastine HCL - Hx Solution 0.1% spray two J31. Ralph , (Nasal) 10/26/[address] each nostril twice a day as needed for allergies Ipratropium - Hx Solution 0.06% 2 Sprays Per J31. Ralph, [place] 10/26/2015 Nostril qid 0 Dave chávez Iron - Hx Tablets 28mg one by mouth Unknown 04/21/2018 every day Vitamin C - Hx Tablets 500mg 1 by mouth Unknown 04/21/2018 every day ALL Day Allergy - Hx Capsules 10mg 1 by mouth Unknown 04/21/2018 every day Immunizations CPT Code Status Date Vaccine Reaction Lot # [id number] Given 03/06/2018 Influenza Virus Vaccine,Quadrivalent,Split,Preserv Free, 0.5mL,[place] [address] Given 01/11/2015 Influenza Virus [facility] Vaccine,Quadrivalent,Split,Preserv Free, 0.5mL,[place] [address] Given 01/25/2014 Tdap (Adacel) Ages 7 And Above Only [address]15 Given 12/24/2012 Afluria Or Fluvirin Flu Vac Intramuscular Q2035 Refused 11/05/2017 Afluria Imunization Q2035 Refused 07/03/2017 Afluria Imunization Vital Signs Date Vital Result Comment 04/22/2018 4:33pm Body Temperature 98.7 F Weight 277.00 lb Heart Rate 74 /min BP Systolic 126 mmHg BP Diastolic 78 mmHg Respiratory Rate 16 /min Height 68.5 inches 5'8.50" O2 % BldC Oximetry 98 % Ra BMI (Body Mass Index) 41.5 kg/m2 11/05/2017 7:56am Weight 282.00 lb Heart Rate 72 /min BP Systolic 120 mmHg BP Diastolic 78 mmHg Respiratory Rate 18 /min Height 68.5 inches 5'8.50" BMI (Body Mass Index) 42.2 kg/m2 10/09/2017 9:50am Weight 284.00 lb Heart Rate 72 /min BP Systolic 120 mmHg BP Diastolic 82 mmHg Respiratory Rate 18 /min Height 68.5 inches 5'8.50" BMI (Body Mass Index) 42.5 kg/m2 07/03/2017 1:14pm Weight 281.00 lb Heart Rate 66 /min BP Systolic 120 mmHg BP Diastolic 80 mmHg Respiratory Rate 18 /min Height 68.5 inches 5'8.50" BMI (Body Mass Index) 42.1 kg/m2 05/04/2017 8:58am Weight 278.00 lb Heart Rate 74 /min BP Systolic 122 mmHg BP Diastolic 74 mmHg Respiratory Rate 18 /min Height 68.5 inches 5'8.50" BMI (Body Mass Index) 41.7 kg/m2 04/11/2017 3:15pm Weight 280.00 lb Heart Rate 74 /min BP Systolic 120 mmHg BP Diastolic 80 mmHg Respiratory Rate 18 /min Height 68.5 inches 5'8.50" BMI (Body Mass Index) 42.0 kg/m2 10/31/2016 8:52am Weight 276.00 lb Heart Rate 74 /min BP Systolic 120 mmHg BP Diastolic 80 mmHg Respiratory Rate 18 /min Height 68.5 inches 5'8.50" BMI (Body Mass Index) 41.4 kg/m2 09/25/2016 4:00pm Weight 273.00 lb Heart Rate 70 /min BP Systolic 118 mmHg BP Diastolic 76 mmHg Respiratory Rate 18 /min Height 68.5 inches 5'8.50" BMI (Body Mass Index) 40.9 kg/m2 08/04/2016 3:57pm Body Temperature 98.6 F Weight 268.00 lb Heart Rate 78 /min BP Systolic 128 mmHg BP Diastolic 78 mmHg Respiratory Rate 18 /min Height 68.5 inches 5'8.50" BMI (Body Mass Index) 40.2 kg/m2 04/20/2016 8:22am Weight 268.00 lb Heart Rate 74 /min BP Systolic 130 mmHg BP Diastolic 80 mmHg Respiratory Rate 18 /min Height 68.5 inches 5'8.50" BMI (Body Mass Index) 40.2 kg/m2 01/21/2016 9:27am Body Temperature 98.0 F Weight 265.00 lb Heart Rate 74 /min BP Systolic 130 mmHg BP Diastolic 80 mmHg Respiratory Rate 18 /min Height 68.5 inches 5'8.50" BMI (Body Mass Index) 39.7 kg/m2 10/26/2015 9:06am Weight 265.00 lb Heart Rate 74 /min BP Systolic 120 mmHg BP Diastolic 78 mmHg Respiratory Rate 18 /min Height 68.5 inches 5'8.50" BMI (Body Mass Index) 39.7 kg/m2 04/27/2015 9:00am Weight 270.00 lb Heart Rate 78 /min BP Systolic 144 mmHg L/LG BP Diastolic 72 mmHg L/LG BP Systolic Recheck 120 mmHg L at rest BP Diastolic Recheck 80 mmHg L at rest Respiratory Rate 19 /min Height 68.5 inches 5'8.50" BMI (Body Mass Index) 40.5 kg/m2 10/22/2014 8:51am Weight 262.00 lb Heart Rate 74 /min BP Systolic 120 mmHg BP Diastolic 80 mmHg Respiratory Rate 18 /min Height 68.5 inches 5'8.50" BMI (Body Mass Index) 39.3 kg/m2 05/27/2014 1:18pm Body Temperature 98.7 F Weight 258.50 lb Heart Rate 80 /min BP Systolic 122 mmHg BP Diastolic 74 mmHg Respiratory Rate 18 /min Height 68.5 inches 5'8.50" 04/16/14 O2 % BldC Oximetry 98 % Ra BMI (Body Mass Index) 38.7 kg/m2 04/16/2014 9:28am Weight 258.00 lb Heart Rate 72 /min BP Systolic 122 mmHg BP Diastolic 76 mmHg Respiratory Rate 18 /min Height 68.5 inches 5'8.50" 04/16/14 BMI (Body Mass Index) 38.7 kg/m2 02/24/2014 1:10pm Weight 257.00 lb Heart Rate 68 /min BP Systolic 128 mmHg BP Diastolic 70 mmHg Respiratory Rate 18 /min Height 67.6 inches 5'7.60" 01/30/2014 1:57pm Weight 257.00 lb Same Heart Rate 96 /min BP Systolic 130 mmHg L/LG BP Diastolic 78 mmHg L/LG Respiratory Rate 19 /min Height 67.6 inches 5'7.60" 11/10/2013 2:49pm Weight 257.00 lb Up 1# Heart Rate 86 /min BP Systolic 108 mmHg L/LG BP Diastolic 72 mmHg L/LG Respiratory Rate 19 /min Height 67.6 inches 5'7.60" 09/26/2013 2:45pm Weight 256.00 lb Heart Rate 82 /min BP Systolic 142 mmHg L/LG BP Diastolic 76 mmHg L/LG Respiratory Rate 20 /min Height 67.6 inches 5'7.60" 08/06/2013 10:42am Weight 257.38 lb Up 7# Heart Rate 78 /min BP Systolic 124 mmHg L/LG BP Diastolic 78 mmHg L/LG Respiratory Rate 19 /min Height 67.6 inches 5'7.60" 04/25/2013 2:01pm Weight 250.00 lb BP Systolic 140 mmHg BP Diastolic 80 mmHg 04/23/2013 11:08am Body Temperature 98.6 F Weight 247.00 lb Heart Rate 72 /min BP Systolic 130 mmHg BP Diastolic 80 mmHg Respiratory Rate 18 /min Results Test Date Facility Test Result H/L Range Note Laboratory test [facility] Thyroid Stim 4.20 uIU/mL N 0.30-4.20 1 finding 8 (315)- - Hormone Lipid [facility] Cholesterol 185 mg/dL <200 2 8 (315)- - Triglycerides 128 mg/dL <150 3 HDL Cholesterol 40 mg/dL >40 4 LDL-Cholesterol 119 mg/dL < 100 5 Laboratory test 11/28/2017 [facility] Vitamin B12 240 pg/ mL N 193-986 finding (315)- - Magnesium 2.0 mg/dL N 1.8-2.4 Basic (BMP) 11/28/2017 [facility] Glucose 93 mg/dL N 74 -106 (315)- - BUN 8 mg/dL N 7-18 Creatinine 0.8 mg/dL N 0.6-1.3 Glom Filtration Rate, Estimate >60 mL/min >60 If >60 mL/min >60 6 BUN/Creat 10.0 ratio Sodium 141 mmol/L N 136-145 Potassium 4.1 mmol/L N 3.5-5.1 Chloride 108 mmol/L High 98-107 Carbon Dioxide 24 mmol/L N 21-32 Anion Gap 9 mEq/L N 8-16 Calcium 9.0 mg/dL N 8.5-10.1 Laboratory test finding 10/31/2016 [facility] Magnesium 1.9 mg/dL 1.5-2.7 7 Vitamin B12 234 pg/mL 180-914 Lipid Treatment 10/31/2016 [facility] Cholesterol 151 mg/dL 50-199 Triglycerides 178 mg/dL 30-200 HDL 37 mg/dL 35-85 8 Chol/ HDL Ratio 4.1 ratio 3.7-5.6 VLDL 36 mg/dL High 2-29 LDL (Calc) 79 mg/dL 20-99 9 Alt 18 U/L 3-42 Ast 15 U/L 8-42 Basic (BMP) 10/31/2016 [facility] Sodium 138 mmol/L 135-146 10 Potassium 4.5 mmol/L 3.5-5.2 Chloride# 106 mmol/L 97-110 11 Carbon Dioxide 27 mmol/L 24-34 Glucose 98 mg/dL 70-105 BUN 8 mg/dL 6-26 Creatinine 0.8 mg/dL 0.5-1.4 Calcium 9.5 mg/dL 8.5-10.2 Non Deidra Egfr >60 >60 12 Deidra Egfr >60 >60 13 Anion Gap 5 mmol/L Low 7-16 14 Laboratory test 10/31/2016 [facility] TSH 4.19 uIU/mL 0.35-4.94 finding Affirm 09/25/2016 [facility] Trichomonas Negative Negative Vaginalis Gardnerella Vaginalis Positive Abnormal Negative Amina Species Negative Negative CBC With Auto Diff 10/26/2015 [facility] WBC 6.7 K/uL 4.1-11.0 15 RBC 4.52 M/uL 4.00-5.40 Hemoglobin 13.8 gm/dL 12.0-16.0 Hematocrit 40.2 % 36.0-47.0 MCV 89.0 fL 80.0-97.0 MCH 30.6 pg 27.0-32.0 MCHC 34.4 g/dL 32.0-36.0 RDW 12.7 % 11.5-14.5 PLT Count 256 K/ul 140-400 Neutrophil 70.3 % 35.0-75.0 Lymphocyte 20.4 % 16.0-52.0 Monocyte 6.8 % 2.0-10.0 Eosinophil 1.6 % 0.0-5.0 Basophil 0.9 % 0.0-4.0 Abs Neutrophils 4.7 K/uL 2.1-8.0 Abs Lymphocytes 1.4 K/uL 0.8-5.5 Abs Monocytes 0.5 K/uL 0.1-1.0 Abs Eosinophils 0.1 K/uL 0.0-0.5 Abs Basophils 0.1 K/uL 0.0-0.3 Comprehensive Metabolic (CMP) 10/26/2015 [facility] Sodium 138 mmol/L 134- 142 Potassium 4.4 mmol/L 3.5-5.2 Chloride 105 mmol/L 97-109 Carbon Dioxide 28 mmol/L 24-34 Glucose 105 mg/dL 70-105 BUN 10 mg/dL 6-26 Creatinine 0.7 mg/dL 0.5-1.4 Calcium 9.3 mg/dL 8.5-10.2 Total Protein 7.0 g/dL 6.0-8.0 Albumin 3.9 g/dL 3.6-4.9 Globulin 3.1 g/dL 2.0-3.5 A/G Ratio 1.3 Ratio 1.0-2.2 Total Bilirubin 0.3 mg/dL 0.1-1.3 Alkaline Phosphatase 86 U/L 24-140 Alt 24 U/L 3-42 Ast 19 U/L 8-42 Anion Gap 9 mmol/L 6-14 Deidra Egfr >60 >60 16 Non Deidra Egfr >60 >60 17 Laboratory test finding 10/26/2015 [facility] TSH 3.38 uIU/mL 0.35-4.94 Lipid 10/26/2015 [facility] Cholesterol 192 mg/dL 50-199 Triglycerides 112 mg/dL 30-200 HDL 36 mg/dL 35-85 18 Chol/ HDL Ratio 5.3 ratio 3.7-5.6 VLDL 22 mg/dL 2-29 LDL (Calc) 134 mg/dL High 20-99 19 Laboratory test finding 10/26/2015 [facility] Esr 15 mm/hr 0-20 CRP (C-Reactive) 0.45 mg/dL 0.00-0.75 CBC With Auto Diff 10/22/2014 [facility] WBC 7.6 K/uL 4.1-11.0 RBC 4.63 M/uL 4.00-5.40 Hemoglobin 14.1 gm/dL 12.0-16.0 Hematocrit 41.3 % 36.0-47.0 MCV 89.3 fL 80.0-97.0 MCH 30.5 pg 27.0-32.0 MCHC 34.1 g/dL 32.0-36.0 RDW 13.1 % 11.5-14.5 PLT Count 236 K/ul 140-400 Neutrophil 73.8 % 35.0-75.0 Lymphocyte 19.3 % 16.0-52.0 Monocyte 5.7 % 2.0-10.0 Eosinophil 0.7 % 0.0-5.0 Basophil 0.5 % 0.0-4.0 Abs Neutrophils 5.6 K/uL 2.1-8.0 Abs Lymphocytes 1.5 K/uL 0.8-5.5 Abmon 0.4 K/uL 0.1-1.0 Abs Eosinophils 0.1 K/uL 0.0-0.5 Abs Basophils 0.0 K/uL 0.0-0.3 Laboratory test finding 10/22/2014 [facility] TSH 3.02 uIU/mL 0.35-4.94 Comprehensive Metabolic (CMP) 10/22/2014 [facility] Sodium 136 mmol/L 134- 142 Potassium 4.0 mmol/L 3.5-5.2 Chloride 104 mmol/L 97-109 Carbon Dioxide 25 mmol/L 24-34 Glucose 98 mg/dL 70-105 BUN 7 mg/dL 6-26 Creatinine 0.7 mg/dL 0.5-1.4 Calcium 9.2 mg/dL 8.5-10.2 Total Protein 7.2 g/dL 6.0-8.0 Albumin 4.1 g/dL 3.6-4.9 Globulin 3.1 g/dL 2.0-3.5 A/G Ratio 1.3 Ratio 1.0-2.2 Total Bilirubin 0.5 mg/dL 0.1-1.3 Alkaline Phosphatase 90 U/L 24-140 Alt 18 U/L 3-42 Ast 16 U/L 8-42 Anion Gap 11 mmol/L 6-14 Deidra Egfr >60 >60 20 Non Deidra Egfr >60 >60 21 Laboratory test finding 10/22/2014 [facility] Magnesium 1.9 mg/dL 1.5-2.7 Vitamin B12 266 pg/mL 180-914 Laboratory test 10/22/2014 [facility] Lyme Igm/Igg AB NEGATIVE (Neg) 22 finding Laboratory test 02/24/2014 N2N/CCD Import Amina species Negative [ Negative] finding Gardnerella vaginalis Positive High [Negative] Trichomonas vaginalis Negative [Negative] Urine Screen 01/25/2014 N2N/CCD Import Urine Bilirubin - Negative Negative Dipstick Urine Blood Trace Negative Urine Clarity Clear Clear Urine Color Yellow Yellow Urine Glucose - Dipstick Negative mg/dL Negative Urine Ketone Negative mg/dL Negative Urine Leuk Esterase Negative Negative Urine Nitrite - Dipstick Negative Negative Urine PH 6.0 Low 6.5-7.5 Urine Protein - Dipstick Negative mg/dL Negative Urine Specific [place] >=1.030 1.010-1.030 Urine Urobilinogen - Dipstick 0.2 E.U./dL 0.2-1.0 1 E66.9,E78.OO,Z79.899 2 Reference Guidelines*: Desirable: ........... < 200 mg/dL Borderline High: ..... 200-239 mg/dL High: ................ >=240 mg/dL * The National Cholesterol Education Program (NCEP) 3 Reference Guidelines*: Normal: ............. < 150 mg/dL Borderline High: .... 150-199 mg/dL High: ............... 200-499 mg/dL Very High: .......... > 500 mg/dL * Source: National Cholesterol Education Program (NCEP) 4 Reference Guidelines*: Low HDL: ..... < 40 mg/dL Normal: ..... 40-60 mg/dL Desirable: ... > 60 mg/dL *The National Cholesterol Education Program(NCEP) 5 Reference Guidelines*: Optimal:........... <100 mg/dL Near Optimal....... 100-129 mg/dL Borderline High.... 130-159 mg/dL High............... 160-189 mg/dL Very High.......... >=190 mg/dL * Source: National Cholesterol Education Program (NCEP) 6 Note: Persistent reduction for 3 months or more in an eGFR <60 mL/min/1.73 m2 defines CKD. Patients with eGFR values >/=60 mL/min/1.73 m2 may also have CKD if evidence of persistent proteinuria is present. The original MDRD equation for estimated GFR is not valid for patients less than 18 years of age. Additional information may be found at www.kdoqi.org. 7 10/16 8 Per NCEP ATP III Guidelines: Results lower than 40 mg/dL are suggestive of increased risk for coronary artery disease. Results > or=to 60 mg/dL are considered a negative risk factor. 9 Per NCEP ATP III Guidelines: Normal Population <130 Patients with medical conditions: CHD/DM Optimal: <100 Borderline high: 130-159 High: 160-189 Very high: >189 10 Updated reference range on new analyzer 11 Updated reference range on new analyzer 12 Concerning GFR Guidelines: Normal function or mild renal disease, if clinically at risk: >/=60 mL/min Moderately decreased: 30-59 Severely decreased: 15-29 Renal failure: <15 Glomerular Filtration Rate (GFR) is estimated based on the MDRD equation, which assumes a steady state for creatinine as recommended by the National Kidney Disease Education Program in conjunction with the National Institutes of Health and the National Kidney Foundation. Clinical conditions in which it may be necessary to measure GFR by using clearance methods include extremes of age and body size, severe malnutrition or obesity, diseases of skeletal muscle, paraplegia or quadriplegia, vegetarian diet, rapidly changing kidney function, and calculation of the dose of potentially toxic drugs that are excreted by the kidneys. 13 Concerning GFR Guidelines for Americans: Normal function or mild renal disease, if clinically at risk: >/=60 mL/min Moderately decreased: 30-59 Severely decreased: 15-29 Renal failure: <15 14 Updated reference range on new analyzer 15 Fastin hours 16 Concerning GFR Guidelines for Americans: Normal function or mild renal disease, if clinically at risk: >/=60 mL/min Moderately decreased: 30-59 Severely decreased: 15-29 Renal failure: <15 17 Concerning GFR Guidelines: Normal function or mild renal disease, if clinically at risk: >/=60 mL/min Moderately decreased: 30-59 Severely decreased: 15-29 Renal failure: <15 Glomerular Filtration Rate (GFR) is estimated based on the MDRD equation, which assumes a steady state for creatinine as recommended by the National Kidney Disease Education Program in conjunction with the National Institutes of Health and the National Kidney Foundation. Clinical conditions in which it may be necessary to measure GFR by using clearance methods include extremes of age and body size, severe malnutrition or obesity, diseases of skeletal muscle, paraplegia or quadriplegia, vegetarian diet, rapidly changing kidney function, and calculation of the dose of potentially toxic drugs that are excreted by the kidneys. 18 Per NCEP ATP III Guidelines: Results lower than 40 mg/dL are suggestive of increased risk for coronary artery disease. Results > or=to 60 mg/dL are considered a negative risk factor. 19 Per NCEP ATP III Guidelines: Normal Population <130 Patients with medical conditions: CHD/DM Optimal: <100 Borderline high: 130-159 High: 160-189 Very high: >189 20 Concerning GFR Guidelines for Americans: Normal function or mild renal disease, if clinically at risk: >/=60 mL/min Moderately decreased: 30-59 Severely decreased: 15-29 Renal failure: <15 21 Concerning GFR Guidelines: Normal function or mild renal disease, if clinically at risk: >/=60 mL/min Moderately decreased: 30-59 Severely decreased: 15-29 Renal failure: <15 Glomerular Filtration Rate (GFR) is estimated based on the MDRD equation, which assumes a steady state for creatinine as recommended by the National Kidney Disease Education Program in conjunction with the National Institutes of Health and the National Kidney Foundation. Clinical conditions in which it may be necessary to measure GFR by using clearance methods include extremes of age and body size, severe malnutrition or obesity, diseases of skeletal muscle, paraplegia or quadriplegia, vegetarian diet, rapidly changing kidney function, and calculation of the dose of potentially toxic drugs that are excreted by the kidneys. 22 A Negative serologic test for Lyme Disease indicates no serologic evidence of infection with B burgdorferi at the time this specimen was collected. A repeat specimen should be collected in 2 to 4 weeks if clinically indicated. Unless otherwise specified, testing performed by [facility] [address] [place] [address] Procedures Date Code Description Status 04/22/2018 99440 Visual Screening Test Completed 04/22/2018 39888 Measure Blood Oxygen Level Single Determination Completed 03/01/2018 [id number] Mammogram Completed 05/27/2014 82803 Measure Blood Oxygen Level Single Determination Completed 08/06/2013 91781 Visual Screening Test Completed 05/13/2012 92499 Admin Of Inj (Therapeutic Phrophylactic Or Diagnostic Completed Subq Inj 10/05/2009 49913 Aspiration &/Or Inj Of Ganglion Cyst(S) Any Location Completed 07/06/2009 67114 Destruction Benign Lesions Other Than Skin Tags Up To Completed 14 Lesions 12/27/2005 29456 Visual Screening Test Completed Encounters Type Date Location Provider Dx Diagnosis Office Visit 11/05/2017 CARSON Torres, M65.4 Radial styloid 8:00a MD Benji tenosynovitis [de Quervain] K21.9 Gastro-esophageal reflux disease without esophagitis E66.9 Obesity, unspecified J30.9 Allergic rhinitis, unspecified E78.00 Pure hypercholesterolemia, unspecified F33.1 Major depressive disorder, recurrent, moderate F41.1 Generalized anxiety disorder Z79.899 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 S52.102D Unsp fx upper end LEFT radius, subs for clos fx w routn heal Z68.41 Body mass index (BMI) 40.0-44.9, adult Office Visit 10/09/2017 10:00a [facility] Benji Torres, S52.101A Unsp fracture of MD upper end of RIGHT radius, init for clos fx Z68.41 Body mass index (BMI) 40.0-44.9, adult Office Visit 07/03/2017 2:00p Benji Nunez, M65.4 Radial styloid MD tenosynovitis [de Quervain] Z68.41 Body mass index (BMI) 40.0-44.9, adult Office Visit 05/04/2017 9:00a CARSON Torres, K21.9 Gastro-esophageal reflux MD Benji disease without esophagitis E78.00 Pure hypercholesterolemia, unspecified E66.9 Obesity, unspecified J30.9 Allergic rhinitis, unspecified F41.1 Generalized anxiety disorder F33.1 Major depressive disorder, recurrent, moderate M25.542 Pain in joints of LEFT hand Z79.899 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 Office Visit 04/11/2017 3:30p Benji Nunez, M25.542 Pain in joints of MD LEFT hand Office Visit 10/31/2016 9:00a Benji Nunez, K21.9 Gastro- esophageal MD reflux disease without esophagitis E78.00 Pure hypercholesterolemia, unspecified F33.1 Major depressive disorder, recurrent, moderate F41.1 Generalized anxiety disorder R51 Headache E66.9 Obesity, unspecified J30.9 Allergic rhinitis, unspecified Office Visit 09/25/2016 4:00p Tere Nunez, 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 Office Visit 08/04/2016 4:00p [facility] Tere Torres, K29.00 Acute gastritis 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 Office Visit 04/20/2016 8:30a Benji Nunez, K21.9 Gastro- esophageal MD reflux disease without esophagitis E78.00 Pure hypercholesterolemia, unspecified F33.1 Major depressive disorder, recurrent, moderate F41.1 Generalized anxiety disorder E66.9 Obesity, unspecified Z79.899 Other jail (current) drug therapy Office Visit 01/21/2016 9:30a [facility] Mart Bina, H66.91 Otitis media, PA unspecified, RIGHT ear Office Visit 10/26/2015 9:00a [facility] Benji Torres, R51 Headache K21.9 Gastro-esophageal reflux disease without esophagitis F33.1 Major depressive disorder, recurrent, moderate F41.1 Generalized anxiety disorder E66.9 Obesity, unspecified Z79.899 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 E78.0 Pure hypercholesterolemia Office Visit 04/27/2015 9:00a [facility] Brian M26.60 Temporomandibular joint MD Benji disorder, unspecified J32.9 Chronic sinusitis, unspecified K21.9 Gastro-esophageal reflux disease without esophagitis F32.9 Major depressive disorder, single episode, unspecified E66.9 Obesity, unspecified Office Visit 10/22/2014 9:00a [facility] Benji Torres, 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 726.32 Epicondylitis Lateral 530.81 Esophageal Reflux 695.89 Erythematous Conditions Other E906.4 Bite Nonvenomous Arthropod 311 Depressive Disorder Not Elsewhere Spec 278.00 Obesity Unspec V58.69 Medications 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 Placer (Current) Use Encounter 780.79 Malaise And Fatigue Other Z68.39 Body mass index (BMI) 39.0-39.9, adult Office Visit 05/27/2014 1:15p [facility] Tere Torres, 461.9 Sinusitis Acute 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 Unspec Office Visit 04/16/2014 9:30a [facility] Benji Torres MD 461.9 Sinusitis Acute Unspec 728.71 Fibromatosis Plantar Fascia 782.1 Rash & Other Nonspec Skin Eruption 530.81 Esophageal Reflux 278.00 Obesity Unspec 311 Depressive Disorder Not Elsewhere Spec 272.0 Hypercholesterolemia Pure Plan of Treatment Future Appointment(s):05/13/2018 8:00 am - Benji Torres MD at [facility]2018 - Benji Torres, MDR42 Dizziness and giddinessNew Medication: Meclizine HCL 25 mg - take 1 tablet by mouth 3 times daily as needed for siqtkmvvzX72.41 Body mass index (BMI) 40.0-44.9, adult
[2018-05-02 14:40] VITALS: BP 136/78
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
== END 2018-05-02 15:05 | disposition home health service (06) ==
LOC: UCCORT 14:15
DX: M25.511 Pain in right shoulder (principal); M54.2 Cervicalgia; Z91.030 Bee allergy status; Z88.2 Allergy status to sulfonamides; Z87.891 Personal history of nicotine dependence; V89.2XXA Person injured in unspecified motor-vehicle accident, traffic, initial encounter; Y92.9 Unspecified place or not applicable
CPT/HCPCS: 99212; G0463

== ENCOUNTER 2018-06-28 19:18 | Emergency (ER) | payer OTHER ==
[2018-06-28 19:39] VITALS: BP 143/86
--- NOTE | 2018-06-28 19:58 | UC ---
Upper Extremity HPI - HPI Summary HPI Summary: Pt presents with c/o left arm pain that began after lifting her 150 lb dog into a dog bath. Pt reports that she felt an immediate onset of pain in left elbow and forearm that worsens with suppination and bending elbow. Pt has taken 1 ibuprofen, has not applied ice and has full ROM. - History of Current Complaint Chief Complaint: UCUpperExtremity Stated Complaint: LT ARM INJURY Time Seen by Provider: 06/28/18 19:43 Hx Obtained From: Patient Hx Last Menstrual Period: UNSURE ?: No Onset/Duration: Sudden Onset, Lasting Hours Severity Initially: Moderate Severity Currently: Moderate Pain Intensity: 8 Location Of Pain: Is Discrete @ - left elbow and forearm Character: Dull, Aching, Stiffness Aggravating Factor(s): Movement, Flexion, Internal/External Rotation Alleviating Factor(s): Rest Related History: Dominant Hand Right - Risk Factors Non-Orthopedic Risk Factor: Negative DVT Risk Factors: Negative Septic Arthritis Risk Factor: Negative Compartment Syndrome Risk Factors: Pain - Allergies/Home Medications Allergies/Adverse Reactions: Allergies Allergy/AdvReac Type Severity Reaction Status Date / Time bee venom protein (honey bee) Allergy Anaphylatic Verified 06/28/18 19:39 Shock Sulfa (Sulfonamide Allergy Swelling Verified 06/28/18 19:39 Antibiotics) Of Face,Lips,& Throat Home Medications: Home Medications Ibuprofen TAB* [Motrin TAB* 800 MG] 800 mg PO ONCE 06/28/18 [History Confirmed 06/28/18] Iron,Carbonyl [Iron Chews] 15 mg PO DAILY 06/28/18 [History Confirmed 06/28/18] PMH/Surg Hx/FS Hx/Imm Hx Previously Healthy: Yes Other History Of: Negative For: HIV, Hepatitis B, Hepatitis C, Anticoagulant Therapy - Surgical History Surgical History: Yes Surgery Procedure, Year, and Place: 2009 LAPAROSCOPIC CHOLECYSTECTOMY, [facility]. 2011 OVA(EGG) RETRIEVAL- SEDATION, [place]. WISDOM TEETH REMOVED, OFFICE. 2012 [place], [facility] [place] RIGHT HAND SX--2012 - Family History Known Family History: Positive: Hypertension, Diabetes - Social History Occupation: Employed Full-time Lives: With Family Alcohol Use: Rare Substance Use Type: None Smoking Status (MU): Former Smoker Type: Cigarettes Amount Used/How Often: 1/2 PPD Length of Time of Smoking/Using Tobacco: 8 Years Have You Smoked in the Last Year: No When Did the Patient Quit Smoking/Using Tobacco: 2000 - Immunization History Most Recent Influenza Vaccination: Not the 2016/2017 Season Most Recent Tetanus Shot: UTD Most Recent Pneumonia Vaccination: N/A Vaccination Up to Date: Yes Review of Systems All Other Systems Reviewed And Are Negative: Yes Constitutional: Positive: Negative Skin: Positive: Negative Eyes: Positive: Negative ENT: Positive: Negative Respiratory: Positive: Negative Cardiovascular: Positive: Negative Gastrointestinal: Positive: Negative Genitourinary: Positive: Negative Motor: Positive: Negative Neurovascular: Positive: Negative Musculoskeletal: Positive: Myalgia Neurological: Positive: Negative Psychological: Positive: Negative Is Patient Immunocompromised?: No Physical Exam Triage Information Reviewed: Yes Appearance: Well-Appearing Vital Signs: Initial Vital Signs Temp 97.5 F 06/28/18 19:34 Pulse 90 06/28/18 19:34 Resp 18 06/28/18 19:34 BP 143/86 06/28/18 19:34 Pulse Ox 100 06/28/18 19:34 Vital Signs Reviewed: Yes Eye Exam: Normal ENT Exam: Normal Dental Exam: Normal Neck exam: Normal Respiratory Exam: Normal Cardiovascular Exam: Normal Musculoskeletal Exam: Normal Musculoskeletal: Positive: Strength Intact, ROM Intact, No Edema Neurological Exam: Normal Psychological Exam: Normal Skin Exam: Normal Upper Extremity Course/Dx - Differential Dx/Diagnosis Differential Diagnosis/HQI/PQRI: Fracture (Closed), Strain, Sprain Provider Diagnosis: Strain of left elbow and forearm Discharge - Sign-Out/Discharge Documenting (check all that apply): Patient Departure All imaging exams completed and their final reports reviewed: No Studies - Discharge Plan Condition: Stable Disposition: HOME Prescriptions: Cyclobenzaprine TAB* [Flexeril 10 MG TAB*] 10 mg PO Q8H PRN #15 tab PRN Reason: Pain predniSONE TAB* [Deltasone 20 MG TAB*] 20 mg PO DAILY #4 tab Patient Education Materials: Elbow Sprain (ED), Arm Pain (ED) Referrals: Benji Torres MD [Primary Care Provider] - If Needed - Billing Disposition and Condition Condition: STABLE Disposition: Home - Attestation Statements Provider Attestation: I was available for consult. This patient was seen by the PRINCE. The patient was not presented to, seen by, or examined by me. -Agueda
== END 2018-06-28 20:08 | disposition home or self-care (01) ==
LOC: UCCORT 19:18
DX: S56.912A Strain of unspecified muscles, fascia and tendons at forearm level, left arm, initial encounter (principal); Z87.891 Personal history of nicotine dependence; Z88.2 Allergy status to sulfonamides; Z91.030 Bee allergy status; X58.XXXA Exposure to other specified factors, initial encounter; Y92.9 Unspecified place or not applicable
CPT/HCPCS: 99212; G0463

== ENCOUNTER 2018-09-17 19:21 | Emergency (ER) | payer OTHER ==
--- NOTE | 2018-09-17 19:57 | UC ---
UC Dental HPI - HPI Summary HPI Summary: left upper dental pain----has needed a root canal but put the procedure off due to work - History of Current Complaint Chief Complaint: UCDentalProblem Stated Complaint: DENTAL PAIN Time Seen by Provider: 09/17/18 19:56 Hx Obtained From: Patient Hx Last Menstrual Period: UNSURE ?: No Onset/Duration: Gradual Onset, Lasting Days, Still Present, Worse Since - today Pain Intensity: 6 Pain Scale Used: 0-10 Numeric Aggravating Factor(s): Heat, Cold, Chewing Alleviating Factor(s): OTC Meds Related History: Previous Dental Care on Same Tooth - Allergies/Home Medications Allergies/Adverse Reactions: Allergies Allergy/AdvReac Type Severity Reaction Status Date / Time bee venom protein (honey bee) Allergy Anaphylatic Verified 09/17/18 19:59 Shock Sulfa (Sulfonamide Allergy Swelling Verified 09/17/18 19:59 Antibiotics) Of Face,Lips,& Throat Home Medications: Home Medications ALPRAZolam TAB* [Xanax TAB*] 0.5 mg PO TID PRN 09/17/18 [History Confirmed 09/17] PMH/Surg Hx/FS Hx/Imm Hx GI/ History: Gastroesophageal Reflux Psychological History: Anxiety Other History Of: Negative For: HIV, Hepatitis B, Hepatitis C, Anticoagulant Therapy - Surgical History Surgical History: Yes Surgery Procedure, Year, and Place: 2009 LAPAROSCOPIC CHOLECYSTECTOMY, [facility]. 2011 OVA(EGG) RETRIEVAL- SEDATION, [place]. WISDOM TEETH REMOVED, OFFICE. 2012 [place] [facility] [place] - Family History Known Family History: Positive: Hypertension, Diabetes - Social History Occupation: Employed Full-time Lives: With Family Alcohol Use: Rare Substance Use Type: None Smoking Status (MU): Former Smoker Type: Cigarettes Amount Used/How Often: 1/2 PPD Length of Time of Smoking/Using Tobacco: 8 Years Have You Smoked in the Last Year: No When Did the Patient Quit Smoking/Using Tobacco: 2000 - Immunization History Most Recent Influenza Vaccination: Not the 2016/2017 Season Most Recent Tetanus Shot: UTD Most Recent Pneumonia Vaccination: N/A Vaccination Up to Date: Yes Review of Systems All Other Systems Reviewed And Are Negative: No Constitutional: Positive: Negative Skin: Positive: Negative Eyes: Positive: Negative ENT: Positive: Dental Pain Respiratory: Positive: Negative Cardiovascular: Positive: Negative Gastrointestinal: Positive: Negative Genitourinary: Positive: Negative Motor: Positive: Negative Neurovascular: Positive: Negative Musculoskeletal: Positive: Negative Neurological: Positive: Negative Psychological: Positive: Negative Is Patient Immunocompromised?: No Physical Exam Appearance: Well-Appearing, No Pain Distress, Well-Nourished Vital Signs Reviewed: Yes Eye Exam: Normal Eyes: Positive: Conjunctiva Clear ENT Exam: Normal ENT: Positive: Normal ENT inspection, Hearing grossly normal, Pharynx normal, TMs normal. Negative: Nasal congestion, Trismus, Muffled voice, Hoarse voice, Dental tenderness, Sinus tenderness Dental Exam: Other Dental: Positive: Percussion Tenderness @ - left upper second molar, Gross Decay /Caries @, Abscess @ Neck exam: Normal Neck: Positive: Supple, Nontender, No Lymphadenopathy Respiratory Exam: Normal Respiratory: Positive: Chest non-tender, No respiratory distress, No accessory muscle use Cardiovascular Exam: Normal Cardiovascular: Positive: RRR, No Murmur, Pulses Normal, Brisk Capillary Refill Musculoskeletal Exam: Normal Musculoskeletal: Positive: Strength Intact, ROM Intact, No Edema Neurological Exam: Normal Neurological: Positive: Alert, Muscle Tone Normal Psychological Exam: Normal Skin Exam: Normal Dental Complaint Course/Dx - Course Course Of Treatment: dental infection treat with amoxicillin and hydrocodone for pain-follow with dentist this week----hypertension follow with pcp in next 2 weeks for reassessment - Differential Dx/Diagnosis Provider Diagnosis: Hypertension, Abscess, dental Discharge - Sign-Out/Discharge Documenting (check all that apply): Patient Departure All imaging exams completed and their final reports reviewed: No Studies - Discharge Plan Condition: Stable Disposition: HOME Prescriptions: Amoxicillin PO (*) [Amoxicillin 500 MG CAP*] 500 mg PO TID #30 cap Patient Education Materials: Dental Abscess (ED), DASH Eating Plan (ED), Hypertension (ED) Referrals: Benji Torres MD [Primary Care Provider] - 2 Weeks Additional Instructions: Follow with dentist this week! - Billing Disposition and Condition Condition: STABLE Disposition: Home
[2018-09-17 19:58] VITALS: BP 144/87
== END 2018-09-17 20:17 | disposition home or self-care (01) ==
LOC: UCCORT 19:21
DX: K04.7 Periapical abscess without sinus (principal); I10 Essential (primary) hypertension; Z88.2 Allergy status to sulfonamides; F41.9 Anxiety disorder, unspecified; Z87.891 Personal history of nicotine dependence
CPT/HCPCS: 99212; G0463

== ENCOUNTER 2019-02-11 17:52 | Emergency (ER) | payer OTHER ==
--- OUTSIDE RECORDS SUMMARY | 2019-02-11 19:58 | XMS REPORT | Continuity of Care Document ---
:1970 External Reference #:[id number] Author Name Nils Greene M.D. 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 ETOH Use Rare Use Of Alcohol Recreational Drug Use Has Used In Past Allergies, Adverse Reactions, Alerts Active Allergies Reaction Severity Comments Date sulfa 11/21/2018 Bee Sting Moderate 11/21/2018 Medications Active Medications SIG Qnty Indications Ordering Provider Date Cetirizine HCL Unknown 10mg Tablets Bupropion Hydrochloride Unknown ER (XL) 300mg Tablets ER 24HR Ferrous Sulfate 1 by mouth twice Unknown 325(65Fe) a day mg Tablets Meclizine HCL Unknown 25mg Tablets Fluticasone Propionate 1 spray in each Unknown Nasal [place] nostril once a 50mcg/Act day Suspension Omeprazole 1 by mouth every Unknown 20mg Capsules DR day Paroxetine HCL 1 by mouth every Unknown 10mg Tablets day Immunizations Description No Information Available Vital Signs Date Vital Result Comment 12/26/2018 1:22pm Weight 283.00 lb Height 68 inches 5'8" BMI (Body Mass Index) 43.0 kg/m2 BP Systolic 134 mmHg BP Diastolic 88 mmHg Heart Rate 78 /min O2 % BldC Oximetry 98 % Body Temperature 97.1 F Pain Level 0 11/21/2018 3:50pm Weight 280.00 lb Height 68 inches 5'8" BMI (Body Mass Index) 42.6 kg/m2 BP Systolic 131 mmHg BP Diastolic 84 mmHg Heart Rate 73 /min O2 % BldC Oximetry 97 % Body Temperature 96.8 F [place] Score 9 Neck Circumference in inches 16.5 Pain Level 0 Results Description No Information Available Procedures Date Code Description Status 11/21/2018 77833 Fiberoptic Laryngoscopy,Diag. Completed Medical Devices Description No Information Available Encounters Type Date Location Provider Dx Diagnosis Office Visit 11/21/2018 3:30p Main Office Nils Greene M.D. R06.83 Snoring E66.9 Obesity, unspecified K21.9 Gastro-esophageal reflux disease without esophagitis J31.0 Chronic rhinitis G47.9 Sleep disorder, unspecified Assessments Date Code Description Provider 11/21/2018 R06.83 Snoring Nils Greene M.D. 11/21/2018 E66.9 Obesity, unspecified Nils Greene M.D. 11/21/2018 K21.9 Gastro-esophageal reflux disease without Nils Greene M.D. esophagitis 11/21/2018 J31.0 Chronic rhinitis Nils Greene M.D. 11/21/2018 G47.9 Sleep disorder, unspecified Nils Greene M.D. Plan of Treatment No Information Available Functional Status Description No Information Available Mental Status Description No Information Available Referrals Refer to Reason for Referral Status Appt Date Nils Greene M.D. PER NAYELI SESAY AUTH REQ FOR PSG CALL REF# Created / 0000 [id number] [place] [id number] [phone]
[2019-02-11 20:08] VITALS: BP 149/73
--- NOTE | 2019-02-11 20:40 | UC ---
Throat Pain/Nasal Cirilo HPI - HPI Summary HPI Summary: Patient is a 48yo female presenting with sinus pain, sinus pressure, and dry cough x1 week. Patient notes yearly sinus infections and seasonal allergies. Also notes chest tightness. Denies SOB and wheezing. Denies sore throat. Denies ear pain. Denies fever and chills. Denies n/v/d. States coughing and sinus pain keeping her up at night. Has taken otc cough and cold meds with some relief. - History of Current Complaint Chief Complaint: UCGeneralIllness Stated Complaint: COUGH,SINUS COMPLAINT Hx Obtained From: Patient Hx Last Menstrual Period: 12/25/18 Onset/Duration: Gradual Onset, Lasting Weeks Pain Intensity: 0 Related History: Seasonal Allergies - Allergies/Home Medications Allergies/Adverse Reactions: Allergies Allergy/AdvReac Type Severity Reaction Status Date / Time bee venom protein (honey bee) Allergy Anaphylatic Verified 02/11/19 20:00 Shock Sulfa (Sulfonamide Allergy Swelling Verified 02/11/19 20:00 Antibiotics) Of Face,Lips,& Throat Home Medications: Home Medications Dm/Acetaminophen/Doxylamine [Nighttime Cold and Flu Liquid] 30 ml PO ONCE [History Confirmed 02/11/19] PMH/Surg Hx/FS Hx/Imm Hx GI/ History: Gastroesophageal Reflux Other History Of: Negative For: HIV, Hepatitis B, Hepatitis C, Anticoagulant Therapy - Surgical History Surgical History: Yes Surgery Procedure, Year, and Place: 2009 LAPAROSCOPIC CHOLECYSTECTOMY, [facility]. 2011 OVA(EGG) RETRIEVAL- SEDATION, [place]. WISDOM TEETH REMOVED, OFFICE. 2012 BALLOON SINUS SURGERY, [facility] [place]. RIGHT HAND SX--2012 - Family History Known Family History: Positive: Hypertension, Diabetes - Social History Occupation: Employed Full-time Alcohol Use: None Substance Use Type: None Smoking Status (MU): Former Smoker Type: Cigarettes Amount Used/How Often: 1/2 PPD Length of Time of Smoking/Using Tobacco: 8 Years Have You Smoked in the Last Year: No When Did the Patient Quit Smoking/Using Tobacco: 2000 - Immunization History Most Recent Influenza Vaccination: Not the 2016/2017 Season Most Recent Tetanus Shot: UTD Most Recent Pneumonia Vaccination: N/A Vaccination Up to Date: Yes Review of Systems All Other Systems Reviewed And Are Negative: Yes Constitutional: Positive: Negative. Negative: Fever, Chills, Fatigue ENT: Positive: Sinus Congestion, Sinus Pain/Tenderness. Negative: Sore Throat, Ear Ache, Nasal Discharge Respiratory: Positive: Cough - dry, Other - chest tightness. Negative: Shortness Of Breath Cardiovascular: Positive: Negative Gastrointestinal: Positive: Negative Musculoskeletal: Positive: Negative Neurological: Positive: Headache Physical Exam Triage Information Reviewed: Yes Appearance: Well-Appearing, No Pain Distress, Well-Nourished Vital Signs: Initial Vital Signs Temp 97.7 F 02/11/19 20:02 Pulse 72 02/11/19 20:02 Resp 18 02/11/19 20:02 BP 149/73 02/11/19 20:02 Pulse Ox 99 02/11/19 20:02 Vital Signs Reviewed: Yes Eyes: Positive: Conjunctiva Clear ENT: Positive: Hearing grossly normal, Pharyngeal erythema, Nasal congestion, Nasal drainage - PND, TMs normal, Sinus tenderness - frontal, Uvula midline. Negative: Tonsillar swelling, Tonsillar exudate Neck exam: Normal Neck: Positive: Supple, Nontender, No Lymphadenopathy Respiratory Exam: Normal Respiratory: Positive: Lungs clear, Normal breath sounds, No respiratory distress. Negative: Crackles, Rhonchi, Stridor, Wheezing Cardiovascular Exam: Normal Cardiovascular: Positive: RRR Neurological: Positive: Alert Psychological: Positive: Age Appropriate Behavior Throat Pain/Nasal Course/Dx - Course Course Of Treatment: I am treating with Augmentin for bacterial sinusitis. Educated on acute bronchitis and treated with short course of prednisone. Instructed to continue with symptomatic treatment including tessalon perles. Directed to follow up with pcp for persistent symptoms. Patient voiced understanding and agreed with treatment plan. - Differential Dx/Diagnosis Provider Diagnosis: Sinusitis, Acute bronchitis Discharge ED - Sign-Out/Discharge Documenting (check all that apply): Patient Departure All imaging exams completed and their final reports reviewed: No Studies - Discharge Plan Condition: Stable Disposition: HOME Prescriptions: Amoxicillin/Clavulanate TAB* [Augmentin TAB 875*] 875 mg PO BID #13 tab Benzonatate CAP* [Tessalon 100 MG CAP*] 100 mg PO BID PRN #20 cap PRN Reason: Cough predniSONE TAB* [Deltasone 20 MG TAB*] 20 mg PO DAILY #5 tab Patient Education Materials: Sinusitis (ED), Acute Bronchitis (ED) Referrals: Benji Torres MD [Primary Care Provider] - If Needed Additional Instructions: As discussed, take Augmentin as prescribed for treatment of your sinusitis. He received the first dose tonight around 9 PM. Take the prednisone as prescribed to help reduce inflammation. You may also take Tessalon Perles as prescribed help alleviate coughing. Follow up with your PCP if your symptoms do not resolve within 7 days. - Billing Disposition and Condition Condition: STABLE Disposition: Home
[2019-02-11] MEDS ORDERED: Benzonatate CAP* 100 MG PO ONE (20:58)
[2019-02-11] MEDS ORDERED: Amoxicillin/Clavulanate TAB* 875 MG PO ONE (20:59)
== END 2019-02-11 21:11 | disposition home or self-care (01) ==
LOC: UCCORT 17:52
DX: J20.9 Acute bronchitis, unspecified (principal); J32.9 Chronic sinusitis, unspecified; B96.89 Other specified bacterial agents as the cause of diseases classified elsewhere; Z88.2 Allergy status to sulfonamides; Z91.030 Bee allergy status; Z87.891 Personal history of nicotine dependence
CPT/HCPCS: 99212; A9270-GY; G0463

== ENCOUNTER 2019-02-19 17:36 | Emergency (ER) | payer OTHER ==
[2019-02-19 18:31] VITALS: BP 153/88
--- NOTE | 2019-02-19 19:28 | UC ---
Back Pain HPI - HPI Summary HPI Summary: 48-year-old woman comes in with a chief complaint of thoracic and low back pain. Pacer bronchitis recently and has been coughing quite a bit it's been having pain and thoracic back between her shoulder blades. Yesterday started with low back pain and also. She also believes low back pain occurred because of some coughing going on. Pain is worse with twisting turning bending. Some pain does go down to the left buttock into the upper left thigh. No weakness or numbness. No difficulty controlling urine or bowels. Patient's tried some Aleve which did help some however because of her stomach she's not sports continue taking NSAIDs. - History of Current Complaint Chief Complaint: UCBackPain Stated Complaint: BACK SPASMS Time Seen by Provider: 02/19/19 19:10 Hx Last Menstrual Period: 02/18/19 Pain Intensity: 7 - Allergies/Home Medications Allergies/Adverse Reactions: Allergies Allergy/AdvReac Type Severity Reaction Status Date / Time bee venom protein (honey bee) Allergy Anaphylatic Verified 02/19/19 18:31 Shock Sulfa (Sulfonamide Allergy Swelling Verified 02/19/19 18:31 Antibiotics) Of Face,Lips,& Throat PMH/Surg Hx/FS Hx/Imm Hx Previously Healthy: Yes GI/ History: Gastroesophageal Reflux Other History Of: Negative For: HIV, Hepatitis B, Hepatitis C, Anticoagulant Therapy - Surgical History Surgical History: Yes Surgery Procedure, Year, and Place: 2009 LAPAROSCOPIC CHOLECYSTECTOMY, [facility]. 2011 OVA(EGG) RETRIEVAL- [place], [place]. WISDOM TEETH REMOVED, OFFICE. [place] [facility] [place] - Family History Known Family History: Positive: Hypertension, Diabetes - Social History Alcohol Use: Rare Substance Use Type: None Smoking Status (MU): Former Smoker Type: Cigarettes Amount Used/How Often: 1/2 PPD Length of Time of Smoking/Using Tobacco: 8 Years Have You Smoked in the Last Year: No When Did the Patient Quit Smoking/Using Tobacco: 2000 - Immunization History Most Recent Influenza Vaccination: Not the 2017/2017 Season Most Recent Tetanus Shot: UTD Most Recent Pneumonia Vaccination: N/A Vaccination Up to Date: Yes Review of Systems All Other Systems Reviewed And Are Negative: Yes Constitutional: Positive: Negative Skin: Positive: Negative Eyes: Positive: Negative ENT: Positive: Negative Respiratory: Positive: Other - SEE HPI Cardiovascular: Positive: Other - SEE HPI Gastrointestinal: Positive: Negative Motor: Positive: Negative Neurovascular: Positive: Negative Musculoskeletal: Positive: Other: - SEE HPI Neurological: Positive: Negative Psychological: Positive: Negative Is Patient Immunocompromised?: No Physical Exam Triage Information Reviewed: Yes Appearance: Well-Appearing, Well-Nourished, Pain Distress - MILD WITH ROM Vital Signs: Initial Vital Signs Temp 97.9 F 02/19/19 18:27 Pulse 75 02/19/19 18:27 Resp 16 02/19/19 18:27 BP 153/88 02/19/19 18:27 Pulse Ox 100 02/19/19 18:27 Vital Signs Reviewed: Yes Eye Exam: Normal Eyes: Positive: Conjunctiva Clear Neck: Positive: Supple Respiratory: Positive: Lungs clear, Normal breath sounds, No respiratory distress Cardiovascular: Positive: RRR Musculoskeletal: Positive: Other: - Patient is tender to palpation in the thoracic back in between the shoulder blades and also on the low lumbar area. Legs have normal sensation and full range of motion full-strength. Neurological: Positive: Alert Psychological: Positive: Age Appropriate Behavior Skin Exam: Normal Back Pain Course/Dx - Course Course Of Treatment: Patient is unable to take excessive amounts nonsteroidal anti-inflammatories due to GERD. During the daytime she be using acetaminophen and lidocaine patches. In the evening or on days off she can use the [place] and Flexeril. Patient reports she's used accommodation of [place] and Flexeril successfully in the past. Follow-up with sports medicine or primary care doctor for the back pain. Get reevaluated sooner if worse or any questions or concerns. - Differential Dx/Diagnosis Provider Diagnosis: Acute thoracic back pain, Low back pain Discharge ED - Sign-Out/Discharge Documenting (check all that apply): Patient Departure All imaging exams completed and their final reports reviewed: No Studies - Discharge Plan Condition: Stable Disposition: HOME Prescriptions: Cyclobenzaprine TAB* [Flexeril 10 MG TAB*] 10 mg PO TID PRN #15 tab PRN Reason: Pain - Moderate HYDROcodone/ACETAMIN 5-325 MG* [[place] 5-325 TAB*] 1 tab PO Q4H PRN #20 tab MDD 6 PRN Reason: Pain - Moderate Patient Education Materials: Back Pain (ED), Lower Back Exercises (ED) Referrals: Benji Torres MD [Primary Care Provider] - [facility] [Provider Group] Additional Instructions: FOLLOW UP WITH SPORTS MEDICINE IF NOT COMPLETELY IMPROVED. GET REEVALUATED SOONER IF NOT IMPROVING OR WORSE; WEAKNESS, NUMBNESS, DIFFICULTY CONTROLLING BOWEL OR BLADDER OR ANY QUESTIONS OR CONCERNS. - Billing Disposition and Condition Condition: STABLE Disposition: Home
== END 2019-02-19 19:33 | disposition home or self-care (01) ==
LOC: UCCORT 17:36
DX: M54.6 Pain in thoracic spine (principal); M54.5 Low back pain; Z88.2 Allergy status to sulfonamides; Z91.030 Bee allergy status; Z87.891 Personal history of nicotine dependence
CPT/HCPCS: 99212; G0463

== ENCOUNTER 2019-05-09 19:46 | Emergency (ER) | payer OTHER ==
--- OUTSIDE RECORDS SUMMARY | 2019-05-09 20:03 | XMS REPORT ---
:1970 Author Name sound, ultra Care Team Providers Name Role Phone sound, ultra Unavailable Unavailable PROBLEMS Type Condition ICD9-CM Code ADC72-PE Code Onset Condition SNOMED Code Dates Status Problem Acute vaginitis N76.0 Active 19589324 Problem Irregular N92.6 Active 89180000 menstruation, unspecified Problem Oligomenorrhea, N91.5 Active 07341419 unspecified Problem Body mass index Z68.41 Active 986856236 (BMI) 40.0-44.9, adult Problem Leiomyoma of D25.9 Active 96622471 uterus, unspecified ALLERGIES No Information ENCOUNTERS Encounter Location Date [facility] [address] Jan, [place] [id number] [facility] Jan, [place] [id number] [facility] 103 Dec, [facility] [place], [place] [id number] (routine) with abnormal findings Z01.411 ; Encounter for screening mammogram for malignant neoplasm of breast Z12.31 ; Irregular menstruation, unspecified N92.6 and Leiomyoma of uterus, unspecified D25.9 [facility] OBGYN 103 Dec, Leiomyoma of uterus, OBGYN [facility] unspecified D25.9 and Body [place], [place] [id number] mass index (BMI) 40.0-44.9, adult Z68.41 [facility] OBGYN 103 Dec, OBGYN [place] [id number] [facility] 103 Dec, Encounter for gynecological OBGYN [facility] examination (general) [place], [place] [id number] (routine) without abnormal findings Z01.419 ; Encounter for screening mammogram for malignant neoplasm of breast Z12.31 ; Leiomyoma of uterus, unspecified D25.9 ; Body mass index (BMI) 40.0-44.9, adult Z68.41 and Acute vaginitis N76.0 [facility] 103 Aug, [facility]omyoma of uterus, [facility] unspecified D25.9 [place] [id number] [facility] 103 Aug, Leiomyoma of uterus, [facility] unspecified D25.9 and [place], [place] [id number] Abnormal findings on diagnostic imaging of other specified body structures R93.8 [facility] 103 May, Body mass index (BMI ) [facility] 40.0-44.9, adult Z68.41 and [place], [place] [id number] Leiomyoma of uterus, unspecified D25.9 [facility] 103 May, Body mass index (BMI ) [facility] 40.0-44.9, adult Z68.41 and [place], [place] [id number] Oligomenorrhea, unspecified N91.5 [facility] 103 Apr, [place] [id number] [facility] 103 Jan, [place] [id number] [facility] 103 Dec, [place] [id number] [facility] 103 Dec, Encounter for gynecological OBGYN [facility] examination (general) [place], [place] [id number] (routine) with abnormal findings Z01.411 ; Encounter for screening mammogram for malignant neoplasm of breast Z12.31 and Body mass index (BMI) 40.0-44.9, adult Z68.41 [facility] 103 15 Dec, 2016 [place] [id number] [facility] 103 22 Dec, 2015 Encounter for gynecological OBGYN [facility] examination (general) [place], [place] [id number] (routine) without abnormal findings Z01.419 ; Encounter for screening for malignant neoplasm of cervix Z12.4 and Encounter for screening mammogram for malignant neoplasm of breast Z12.31 [facility] 103 22 Dec, 2015 [place]BG[place] [id number] [facility] 103 Dec, [place] [id number] [facility] 103 Dec, [place] [id number] [facility] 103 Oct, [place] [id number] [facility] 103 Dec, Breast Mass 611.72 [place] [id number] [facility] 103 16 Dec, 2013 Breast Mass 611.72 [place] [id number] [facility] 103 10 Dec, 2013 ROUTINE TORPEDOMAN'S MATE EXAMINATION OBGYN [facility] V72.31 ; SCREEN MAMMOGRAM [place], [place] [id number] NEC V76.12 and Breast Mass 611.72 [facility] 103 May, Ovarian cyst NOS 620.2 [place] [id number] [facility] 103 May, Ovarian cyst NOS 620.2 [place] [id number] [facility] 103 May, [place] [id number] [facility] 103 May, [place] [id number] [facility] 103 May, Ovarian cyst NOS 620.2 and OBGYN [facility] Scanty or infrequent [place], [place] [id number] menstruation 626.1 [facility] 103 May, Ovarian cyst NOS 620.2 [place] [id number] [facility] 103 Apr, [place] [id number] [facility] 103 Apr, Ovarian cyst NOS 620.2 and OBGYN [facility][1] or [place], [place] [id number] menstruation 626.1 [facility] 103 Apr, Ovarian cyst NOS 620.2 [place] [id number] [facility] 103 Mar, [place] [id number] [facility] 103 Mar, [place] [id number] [facility] 103 Mar, [place] [id number] [facility] 103 Mar, [place] [id number] [facility] 103 Dec, [place] [id number] [facility] 103 Dec, Ovarian cyst NOS 620.2 and OBGYN [facility] [place] or [place], [place] [id number] menstruation 626.1 [facility] 103 Dec, Ovarian cyst NOS 620.2 [place] [id number] [facility] 103 Dec, ROUTINE TORPEDOMAN'S MATE EXAMINATION OBGYN [facility] V72.31 ; SCREEN MAMMOGRAM [place], [place] [id number] NEC V76.12 and ABN FINDINGS- ORGANS 793.[address] Jan, ROUTINE TORPEDOMAN'S MATE [facility]AMINATION [facility] [address] [place], V72.31 [place] [id number] [facility] 103 Dec, [place] [id number] [facility] 103 Oct, [place] [id number] [facility] 103 Oct, Suppression menstruation [facility] 626.8 ; [place], [place] [id number] TEST-POSITIVE V72.42 and PREG W POOR REPRODUCT HX V23.5 [facility] 103 May, [place] [id number] [address] Apr, Infertility, female, of [facility] [address] [place], other specified origin [place] [id number] 628.8 and Breast Mass 611.72 [facility] 103 Mar, ROUTINE TORPEDOMAN'S MATE EXAMINATION [facility] V72.31 and Primary female [place], [place] [id number] infertility 628.[address] [facility] 103 July, O[place] [id number] [facility] 103 May, HEMATURIA NOS 599.70 and OBGYN [facility] Dysuria 788.1 [place], [place] [id number] [facility] 103 Apr, [place] [id number] [facility] 103 Apr, ROUT POSTPART FOLLOW -UP [facility] V24.2 ; NEC [place], [place] [id number] with NOS 765.10 ; TWINS W LOSS-DEL 651.31 and Depression, major NOS 296.[address] [facility] 103 12 Apr, 2009 VAGINAL DISCHARGE 623.5 [place] [id number] [facility] 103 Apr, [place] [id number] [facility] 103 Apr, ABN FINDINGS- ORGANS [facility] 793.5 and PELVIC PAIN 625.9 [place] [id number] [facility] 103 Apr, PELVIC PAIN 625.9 [place] [id number] [facility] 103 Mar, ABN FINDINGS- ORGANS [facility] 793.5 ; PELVIC PAIN 625.9 ; [place], [place] [id number] Retained placenta without hemorrhage NOS, delivered with comp 667.02 and infant NEC, less than 500 grams 765.11 [facility] 103 Mar, [place], [place] [id number] [facility] 103 Mar, SCREENING UNSPEC. [facility] V28.9 ; VAGINAL DISCHARGE [place], [place] [id number] 623.5 and Incompetence of cervix 622.[address] [facility] 103 Mar, US-SCREEN ANOMALIES V28.3 ; [facility] CERVICAL SHORTENING-ANTE [place], [place] [id number] 649.73 and Twin , antepartum condition or complication 651.03 [facility] 103 Mar, [place], [place] [id number] [facility] 103 Mar, Leukorrhea, not specified [facility] as infective 623.5 [place] [id number] [facility] 103 Mar, SCREENING UNSPEC. [facility] V28.9 and TWIN [place], [place] [id number] -ANTEPART 651.03 [facility] 103 Jan, Anemia complicating [facility] , antepartum [place], [place] [id number] 648.23 and Gastroesophageal reflux disease 530.81 [facility] 103 Jan, [place] [id number] [facility] 103 Jan, [place] [id number] [facility] 103 Jan, [place], [place] [id number] [facility] 103 Jan, TWIN - ANTEPART [facility] 651.03 [place] [id number] [facility] 103 Jan, [place] [id number] [facility] 103 Jan, SCREENING UNSPEC. [facility] V28.9 ; AMA, ANTEPARTUM [place], [place] [id number] 659.63 and OBESITY COMP PG ANTEPARTUM 649.13 [facility] 103 Jul, [place], [place] [id number] [facility] 103 May, ROUTINE TORPEDOMAN'S MATE EXAMINATION [facility] V72.31 [place] [id number] [facility] 103 Sep, [place] [id number] [facility] 103 Sep, Primary female infertility [facility] 628.9 ; Ovarian cyst NOS [place], [place] [id number] 620.2 and Lump in breast 611.72 [facility] 103 10 Oct, 2007 [place] [id number] [facility] 103 Sep, Lump in breast 611.72 ; OBGYN [facility] Ovarian cyst NOS 620.2 and [place], [place] [id number] Primary female infertility 628.9 [facility] 103 Aug, [place] [id number] [facility] 103 Aug, Ovarian cyst NOS 620.2 [place] [id number] [facility] 103 July, Ovarian cyst NOS 620.2 [place] [id number] [facility] 103 July, Ovarian cyst NOS 620.2 [place] [id number] [facility] 103 May, [place] [id number] [facility] 103 May, Ovarian cyst NOS 620.2 [place] [id number] [facility] 103 May, Ovarian cyst NOS 620.2 [place] [id number] [facility] 103 May, ROUTINE TORPEDOMAN'S MATE EXAMINATION OBGYN [facility] V72.31 ; Lump in breast [place] [id number] 611.72 and Ovarian cyst NOS 620.2 IMMUNIZATIONS No Known Immunizations SOCIAL HISTORY Never Assessed REASON FOR REFERRAL FUNCTIONAL STATUS PLAN OF CARE VITAL SIGNS MEDICATIONS Unknown Medications PROCEDURES Procedure Date Ordered Result Body Site TRANSVAGINAL US, NON-OB Jan 30, 2019 RESULTS Name Result Date Reference Range Ultrasound : Pelvis REASON FOR VISIT US Insurance Providers [facility] Member Patient Patient Patient Patient Patient Subscriber Subscriber Subscriber Group Insurance Plan Plan Plan Plan ID Relationship Address Phone Name Date of ID Name Date of No Type Insurance Insurance Insurance Coverage to Subscriber Address Phone Name Dates Alvino Clemens [phone] Blue celia [place] [id number] Cross/Blue [id number] Cross/Blue [place] 1 Shield [place] [address] Excell[place] [phone] Excellus self Nyla [id number] Blue [id number] 89 Blue [place] 45A Cross/Blue [place] Cross/Blue Shield [address] Shield Blue Cross [phone] Blue Cross self Nyla [id number] Blue [id number] 89 Blue [place] 1 [place] [address] Excell[place] [phone] Excellus self Nyla [id number] Blue [id number] 89 Blue [place] 5 Cross/Blue [place] Cross/Blue Shield [address] Shield [place] [phone] [place] self Nyla [id number] Care of [facility] 47 Care of [facility] [address] Medicaid [phone] Medicaid self Nyla [id number] [facility] [address] [place] [address] Lifetime [phone] Lifetime self Nyla [id number] Benefit Jose Raul 48 Benefit [place] 8 [employer] [place] [employer] [phone] Lifetime [phone] Lifetime self Nyla [id number] Benefit [place] 48 Benefit [place] 8 [employer] [place] [phone] Excellus [phone] Excellus self Nyla [id number] Blue [id number] 89 Blue [place] 9 458AM Cross/Blue [place] Cross/Blue Shield [address] Shield MEDICAL (GENERAL) HISTORY Type Description Date Medical History 05/04/08 unsuccessful IVF Medical History reflux Medical History anxiety [...]
--- OUTSIDE RECORDS SUMMARY | 2019-05-09 20:03 | XMS REPORT ---
:1970 Author Name JusYessi garciadith Address [address] [place] [address] Care Team Providers Name Role Phone Piper Rollins Unavailable Unavailable PROBLEMS Type Condition ICD9-CM Code SOH84-TN Code Onset Condition SNOMED Code Dates Status Problem Acute vaginitis N76.0 Active 06375444 Problem Irregular N92.6 Active 40858185 menstruation, unspecified Problem Oligomenorrhea, N91.5 Active 00681794 unspecified Problem Body mass index Z68.41 Active 646268473 (BMI) 40.0-44.9, adult Problem Leiomyoma of D25.9 Active 62687134 uterus, unspecified ALLERGIES Substance Reaction Event Type Date Status Sulfa swelling/hives Drug Allergy Dec, Active Bees anaphylaxis Drug Allergy Dec, Active ENCOUNTERS Encounter Location Date Diagnosis [facility] Jan, OBGYN [place], [place] [id number] [facility] 103 Jan, [place]BG[place], [place] [id number] [facility] 103 Dec, [facility] [place], [place] [id number] (routine) with abnormal findings Z01.411 ; Encounter for screening mammogram for malignant neoplasm of breast Z12.31 ; Irregular menstruation, unspecified N92.6 and Leiomyoma of uterus, unspecified D25.9 [facility] 103 Dec, Leiomyoma of uterus, OBGYN [facility] unspecified D25.9 and Body [place], [place] [id number] mass index (BMI) 40.0-44.9, adult Z68.41 [facility] 103 Dec, [place] [id number] [facility] 103 Dec, Encounter for gynecological [facility] examination (general) [place], [place] [id number] (routine) without abnormal findings Z01.419 ; Encounter for screening mammogram for malignant neoplasm of breast Z12.31 ; Leiomyoma of uterus, unspecified D25.9 ; Body mass index (BMI) 40.0-44.9, adult Z68.41 and Acute vaginitis N76.0 [facility] 103 Aug, Leiomyoma of uterus, [facility] unspecified D25.9 [place] [id number] [facility] 103 Aug, Leiomyoma of uterus, [facility] unspecified D25.9 and [place], [place] [id number] Abnormal findings on diagnostic imaging of other specified body structures R93.8 [place] [facility] 103 May, Body mass index (BMI ) [facility] 40.0-44.9, adult Z68.41 and [place], [place] [id number] Leiomyoma of uterus, unspecified D25.9 [facility] 103 May, Body mass index (BMI ) [facility] 40.0-44.9, adult Z68.41 and [place], [place] [id number] Oligomenorrhea, unspecified N91.5 [facility] 103 Apr, [place] [id number] [facility] 103 Jan, [place] [id number] [facility] 103 Dec, [place] [id number] [facility] 103 25 Dec, 2016 Encounter for gynecological OBG[facility] examination (general) [place], [place] [id number] (routine) with abnormal findings Z01.411 ; Encounter for screening mammogram for malignant neoplasm of breast Z12.31 and Body mass index (BMI) 40.0-44.9, adult Z68.41 [facility] 103 15 Dec, 2016 OBGYN [place] [id number] [facility] 103 Dec, Encounter for gynecological OBG[facility] examination (general) [place], [place] [id number] (routine) without abnormal findings Z01.419 ; Encounter for screening for malignant neoplasm of cervix Z12.4 and Encounter for screening mammogram for malignant neoplasm of breast Z12.31 [facility] 103 Dec, OBG[place] [id number] [facility] 103 Dec, [place] [id number] [facility] 103 Dec, [place]BG[place] [id number] [facility] 103 Oct, OBG[place] [id number] [facility] 103 08 Dec, 2013 Breast Mass 611.72 [place] [id number] [facility] 103 16 Dec, 2013 Breast Mass 611.72 [place] [id number] [facility] 103 10 Dec, 2013 [employer] EXAMINATION OBG[facility] V72.31 ; SCREEN MAMMOGRAM [place], [place] [id number] NEC V76.12 and Breast Mass 611.72 [facility] 103 May, Ovarian cyst NOS 620.2 OBG[place] [id number] [facility] 103 May, Ovarian cyst NOS 620.2 [place] [id number] [facility] 103 May, OBG[place] [id number] [facility] 103 May, [place], [place] [id number] [facility] 103 May, Ovarian cyst NOS 620.2 and OBGYN [facility] or [place], [place] [id number] menstruation 626.1 [facility] 103 May, Ovarian cyst NOS 620.2 [place] [id number] [facility] 103 Apr, OBG[place] [id number] [facility] 103 Apr, Ovarian cyst NOS 620.2 and OBGYN [facility] or [place] [id number] menstruation 626.1 [facility] 103 Apr, Ovarian cyst NOS 620.2 [place], [place] [id number] [facility] 103 Mar, [place]BG[place] [id number] [facility] 103 Mar, OBG[place] [id number] [facility] 103 Mar, [place] [id number] [facility] 103 Mar, OBG[place] [id number] [facility] 103 Dec, O[place] [id number] [facility] 103 Dec, Ovarian cyst NOS 620.2 and OBGYN [facility] or [place] [id number] menstruation 626.1 [facility] 103 Dec, Ovarian cyst NOS 620.2 [place] [id number] [facility] 103 Dec, [employer] EXAMINATION [facility] V72.31 ; SCREEN MAMMOGRAM [place] [id number] NEC V76.12 and ABN FINDINGS- ORGANS 793.[address] Jan, [employer] EXAMINATION [facility] [address] [place], V72.31 [place] [id number] [facility] 103 Dec, [place] [id number] [facility] Oct, [place] [id number] [facility] 103 Oct, Suppression menstruation [facility] 626.8 ; [place], [place] [id number] TEST-POSITIVE V72.42 and PREG W POOR REPRODUCT HX V23.5 [facility] 103 May, [place] [id number] [address] Apr, Infertility, female, [facility] [address] [place] [address], other specified origin [place] [id number] 628.8 and Breast Mass 611.72 [facility] 103 Mar, [employer] EXAMINATION [facility] V72.31 and Primary female [place], [place] [id number] infertility 628.9 [facility] 103 July, [place] [id number] [facility] 103 May, HEMATURIA NOS 599.[address] [facility] Dysuria 788.1 [place] [id number] [facility] 103 Apr, [place] [id number] [facility] 103 26 Apr, 2009 ROUT POSTPART FOLLOW -UP [facility] V24.2 ; NEC [place], [place] [id number] with NOS 765.10 ; TWINS W LOSS-DEL 651.31 and Depression, major NOS 296.00 [facility] 103 12 Apr, 2009 VAGINAL DISCHARGE 623.5 OBN [place] [id number] [facility] 103 Apr, [place] [id number] [facility] 103 Apr, ABN FINDINGS- ORGANS [facility] 793.5 and PELVIC PAIN 625.9 [place], [place] [id number] [facility] 103 Apr, PELVIC PAIN 625.9 [place] [id number] [facility] 103 Mar, ABN FINDINGS- ORGANS [facility] 793.5 ; PELVIC PAIN 625.9 ; [place], [place] [id number] Retained placenta without hemorrhage NOS, delivered with comp 667.02 and NEC, less than 500 grams 765.11 [facility] 103 Mar, [place] [id number] [facility] 103 Mar, SCREENING UNSPEC. [facility] V28.9 ; VAGINAL DISCHARGE [place], [place] [id number] 623.5 and Incompetence of cervix 622.5 [facility] 103 Mar, US-SCREEN ANOMALIES V28.3 ; [facility] CERVICAL SHORTENING-ANTE [place] [id number] 649.73 and Twin , antepartum condition or complication 651.03 [facility] 103 Mar, [place] [id number] [facility] 103 Mar, Leukorrhea, not specified [facility] as infective 623.5 [place] [id number] [facility] 103 Mar, SCREENING UNSPEC. [facility] V28.9 and TWIN [place], [place] [id number] -ANTEPART 651.03 [facility] 103 Jan, Anemia complicating [facility] , antepartum [place], [place] [id number] 648.23 and Gastroesophageal reflux disease 530.81 [facility] 103 Jan, [place] [id number] [facility] 103 Jan, [place] [id number] [facility] 103 Jan, [place] [id number] [facility] 103 Jan, TWIN - ANTEPART [facility] 651.03 [place], [place] [id number] [facility] 103 Jan, [place] [id number] [facility] 103 Jan, SCREENING UNSPEC. [facility] V28.9 ; AMA, ANTEPARTUM [place], [place] [id number] 659.63 and OBESITY COMP PG ANTEPARTUM 649.13 [facility] 103 Jul, [place] [id number] [facility] 103 May, [employer] EXAMINATION [facility] V72.31 [place], [place] [id number] [facility] 103 Sep, [place] [id number] [facility] 103 Sep, Primary female infertility [facility] 628.9 ; Ovarian cyst NOS [place], [place] [id number] 620.2 and Lump in breast 611.72 [facility] 103 Sep, OBG[place], [place] [id number] [facility] 103 Sep, Lump in breast 611.72 ; [facility] Ovarian cyst NOS 620.2 and [place], [place] [id number] Primary female infertility 628.9 [facility] 103 Aug, [place] [id number] [facility] 103 Aug, Ovarian cyst NOS 620.2 [place] [id number] [facility] 103 July, Ovarian cyst NOS 620.2 [place] [id number] [facility] 103 July, Ovarian cyst NOS 620.2 [place] [id number] [facility] 103 May, [place] [id number] [facility] 103 May, Ovarian cyst NOS 620.2 [place] [id number] [facility] 103 May, Ovarian cyst NOS 620.2 [place] [id number] [facility] 103 May, [employer] EXAMINATION [facility] V72.31 ; Lump in breast [place], [place] [id number] 611.72 and Ovarian cyst NOS 620.2 IMMUNIZATIONS No Known Immunizations SOCIAL HISTORY Never Assessed REASON FOR REFERRAL FUNCTIONAL STATUS PLAN OF CARE Activity Details Follow Up schedule mammo in Mar, annual with US one year Reason: VITAL SIGNS Height 68 in 2019-01-30 Weight 280 lbs 2019-01-30 BMI 42.57 kg/m2 2019-01-30 Blood pressure systolic 110 mm Hg 2019-01-30 Blood pressure diastolic 80 mm Hg 2019-01-30 MEDICATIONS Medication Instructions Dosage Frequency Start End Duration Status Date Date Prilosec 40 mg orally once a 1 cap(s) 24h 30 day(s) Active day Wellbutrin XL 300 orally every 24 1 tab(s) Active mg/24 hours hours Zyrtec 10 mg orally once a 1 tab(s) 24h Active day Provera 10 mg orally once a 1 tab(s) 24h Dec, day(s) Active day 2018 levothyroxine 50 orally once a 1 tab(s) 24h 30 day(s) Active mcg (0.05 mg) day Paxil 10 mg orally once a 1 tab(s) 24h Active day PROCEDURES No Known procedures RESULTS No Results REASON FOR VISIT Annual, US F/U Insurance Providers [facility] Member Patient Patient Patient Patient Patient Subscriber Subscriber Subscriber Group Insurance Plan Plan Plan Plan ID Relationship Address Phone Name Date of ID Name Date of No Type Insurance Insurance Insurance Coverage to Subscriber Address Phone Name Dates Excell[employer] [phone] Excellus self Nyla 1970 [id number] Blue [id number] 89 [address] 45A Cross/[place] Cross/Blue Shield [address] Shield [phone] [place] self Nyla [id number] Care of [facility] 47 Care of [facility] [address] Excellus [phone] Excellus self Nyla 1970 [id number] Blue [id number] 89 Blue [place] 5 Cross/[place] Cross/Blue Shield [address] Shield Lifetime [phone] Lifetime self Nyla [id number] Benefit Jose Raul 48 Benefit [place] 8 [employer] [place] [phone] Excellus [phone] Excellus self Nyla 1970 [id number] Blue [id number] 89 Blue [place] 9 458AM Cross/Blue [place] Cross/Blue Shield [address] Shield Blue [phone] Blue self Nyla [id number] Cross/Blue 11199 16 Cross/Blue [place] 1 Shield [facility] [address] Lifetime [phone] Lifetime self Nyla [id number] Benefit Jose Raul 48 Benefit [place] 8 [employer] [place] [phone] Medicaid [phone] Medicaid self Nyla [id number] [facility] [address] [place] [id number] Blue Cross [phone] Blue Cross self Nyla [id number] Blue [id number] 89 Blue [place] 1 Shield [place] [facility] [place] [address] MEDICAL (GENERAL) HISTORY Type Description Date Medical [...]
--- OUTSIDE RECORDS SUMMARY | 2019-05-09 20:04 | XMS REPORT ---
:1970 Author Organization [facility] Address [address] [place] [address] Care Team Providers Name Role Phone Bria Bernabe Unavailable Unavailable PROBLEMS Type Condition ICD9-CM Code EMB39-UB Code Onset Condition SNOMED Code Dates Status Problem Acute vaginitis N76.0 Active 57287787 Problem Irregular N92.6 Active 26964523 menstruation, unspecified Problem Oligomenorrhea, N91.5 Active 26151147 unspecified Problem Body mass index Z68.41 Active 643301770 (BMI) 40.0-44.9, adult Problem Leiomyoma of D25.9 Active 04081569 uterus, unspecified ALLERGIES No Information ENCOUNTERS Encounter Location Date Diagnosis [facility] 103 Jan, [place]BGYN [place], [place] [id number] [facility] 103 Jan, OBGYN [place], [place] [id number] [facility] 103 Dec, Encounter for gynecological OBGYN [facility] examination (general) [place], [place] [id number] (routine) with abnormal findings Z01.411 ; Encounter for screening mammogram for malignant neoplasm of breast Z12.31 ; Irregular menstruation, unspecified N92.6 and Leiomyoma of uterus, unspecified D25.9 [facility] 103 Dec, Leiomyoma of uterus, OBGYN [facility] unspecified D25.9 and Body [place], [place] [id number] mass index (BMI) 40.0-44.9, adult Z68.41 [facility] 103 Dec, OBGYN [place] [id number] [facility] 103 Dec, [facility] [place], [place] [id number] (routine) without abnormal findings Z01.419 ; Encounter for screening mammogram for malignant neoplasm of breast Z12.31 ; Leiomyoma of uterus, unspecified D25.9 ; Body mass index (BMI) 40.0-44.9, adult Z68.41 and Acute vaginitis N76.0 [facility] 103 Aug, Leiomyoma of uterus, [facility] unspecified D25.9 [place] [id number] [facility] 103 Aug, Leiomyoma of uterus, [facility] unspecified D25.9 and [place], [place] [id number] Abnormal findings on diagnostic imaging of other specified body structures R93.8 [facility] 103 May, Body mass index (BMI ) [facility] 40.0-44.9, adult Z68.41 and [place], [place] [id number] Leiomyoma of uterus, unspecified D25.9 [facility] 103 May, Body mass index (BMI ) [facility] 40.0-44.9, adult Z68.41 and [place], [place] [id number] Oligomenorrhea, unspecified N91.5 [facility] 103 Apr, OBGYN [place] [id number] [facility] 103 Jan, OBGYN [place] [id number] [facility] 103 Dec, OBGYN [place] [id number] [facility] 103 Dec, Encounter for gynecological OBGYN [facility] examination (general) [place], [place] [id number] (routine) with abnormal findings Z01.411 ; Encounter for screening mammogram for malignant neoplasm of breast Z12.31 and Body mass index (BMI) 40.0-44.9, adult Z68.41 [facility] 103 15 Dec, 2016 OBGYN [place] [id number] [facility] 103 Dec, Encounter for gynecological OBGYN [facility] examination (general) [place], [place] [id number] (routine) without abnormal findings Z01.419 ; Encounter for screening for malignant neoplasm of cervix Z12.4 and Encounter for screening mammogram for malignant neoplasm of breast Z12.31 [facility] 103 Dec, OBGYN [place] [id number] [facility] 103 Dec, OBGYN [place] [id number] [facility] 103 Dec, OBGYN [place] [id number] [facility] 103 Oct, OBGYN [place] [id number] [facility] 103 Dec, Breast Mass 611.72 [place] [id number] [facility] 103 16 Dec, 2013 Breast Mass 611.72 [place] [id number] [facility] 103 Dec, ROUTINE DRY CLEANING MANAGER EXAMINATION OBGYN [facility] V72.31 ; SCREEN MAMMOGRAM [place], [place] [id number] NEC V76.12 and Breast Mass 611.72 [facility] 103 May, Ovarian cyst NOS 620.2 [place] [id number] [facility] 103 May, Ovarian cyst NOS 620.2 [place] [id number] [facility] 103 May, OBGYN [place] [id number] [facility] 103 May, OBGYN [place] [id number] [facility] 103 May, Ovarian cyst NOS 620.2 and OBGYN [facility] Scanty or infrequent [place], [place] [id number] menstruation 626.1 [facility] 103 May, Ovarian cyst NOS 620.2 OBGYN [place] [id number] [facility] 103 Apr, OBGYN [place] [id number] [facility] 103 Apr, Ovarian cyst NOS 620.2 and OBGYN [facility] [place] [id number] menstruation 626.1 [facility] 103 Apr, Ovarian cyst NOS 620.2 OBGYN [place] [id number] [facility] 103 Mar, OBGYN [place] [id number] [facility] 103 Mar, OBGYN [place] [id number] [facility] 103 Mar, OBGYN [place] [id number] [facility] 103 Mar, OBGYN [place] [id number] [facility] 103 Dec, OBGYN [place] [id number] [facility] 103 Dec, Ovarian cyst NOS 620.2 and OBGYN [facility] [place] [id number] menstruation 626.1 [facility] 103 03 Oct, 2013 Ovarian cyst NOS 620.2 OBGYN [place] [id number] [facility] 103 Dec, ROUTINE DRY CLEANING MANAGER EXAMINATION [facility] V72.31 ; SCREEN MAMMOGRAM [place], [place] [id number] NEC V76.12 and ABN FINDINGS- ORGANS 793.[address] Jan, ROUTINE DRY CLEANING MANAGER EXAMINATION [facility] [address] [place] [address], V72.31 [place] [id number] [facility] 103 Dec, OBGYN [place] [id number] [facility] 103 Oct, [place] [id number] [facility] 103 Oct, Suppression [facility]ation [facility] 626.8 ; [place], [place] [id number] TEST-POSITIVE V72.42 and PREG W POOR REPRODUCT HX V23.5 [facility] 103 May, [place] [id number] [address] Apr, Infertility, female, of [facility] [address] [place] [address], other specified origin [place] [id number] 628.8 and Breast Mass 611.72 [facility] 103 Mar, ROUTINE DRY CLEANING MANAGER EXAMINATION [facility] V72.31 and Primary female [place], [place] [id number] infertility 628.9 [facility] 103 10 Jul, [address] [place] [id number] [facility] 103 May, HEMATURIA NOS 599.70 and OBGYN [facility] Dysuria 788.1 [place], [place] [id number] [facility] 103 Apr, OBGYN [place] [id number] [facility] 103 Apr, ROUT POSTPART FOLLOW -UP [facility] V24.2 ; infant NEC [place], [place] [id number] with NOS 765.10 ; TWINS W LOSS-DEL 651.31 and Depression, major NOS 296.00 [facility] 103 12 Apr, 2009 VAGINAL DISCHARGE 623.5 [place] [id number] [facility] 103 Apr, [place] [id number] [facility] 103 Apr, ABN FINDINGS- ORGANS [facility] 793.5 and PELVIC PAIN 625.9 [place], [place] [id number] [facility] 103 Apr, PELVIC PAIN 625.9 [place] [id number] [facility] 103 Mar, ABN FINDINGS- ORGANS [facility] 793.5 ; PELVIC PAIN 625.9 ; [place], [place] [id number] Retained placenta without hemorrhage NOS, delivered with comp 667.02 and NEC, less than 500 grams 765.11 [facility] 103 Mar, [place], [place] [id number] [facility] 103 Mar, SCREENING UNSPEC. [facility] V28.9 ; VAGINAL DISCHARGE [place], [place] [id number] 623.5 and Incompetence of cervix 622.5 [facility] 103 Mar, US-SCREEN ANOMALIES V28.3 ; [facility] CERVICAL SHORTENING-ANTE [place], [place] [id number] 649.73 and Twin , antepartum condition or complication 651.03 [facility] 103 Mar, [place], [place] [id number] [facility] 103 Mar, Leukorrhea, not specified [facility] as infective 623.5 [place] [id number] [facility] 103 08 Mar, 2009 SCREENING UNSPEC. [facility] V28.9 and TWIN [place], [place] [id number] -ANTEPART 651.03 [facility] 103 24 Jan, 2009 Anemia complicating [facility] , antepartum [place], [place] [id number] 648.23 and Gastroesophageal reflux disease 530.81 [facility] Jan, [place] [id number] [facility] 103 Jan, [place] [id number] [facility] Jan, [place] [id number] [facility] 103 Jan, TWIN - ANTEPART [facility] 651.03 [place] [id number] [facility] Jan, [place], [place] [id number] [facility] 103 Jan, SCREENING UNSPEC. [facility] V28.9 ; AMA, ANTEPARTUM [place], [place] [id number] 659.63 and OBESITY COMP PG ANTEPARTUM 649.13 [facility] 103 Jul, [place], [place] [id number] [facility] 103 May, ROUTINE DRY CLEANING MANAGER EXAMINATION [facility] V72.31 [place], [place] [id number] [facility] 103 Sep, [place] [id number] [facility] 103 Sep, Primary female infertility [facility] 628.9 ; Ovarian cyst NOS [place], [place] [id number] 620.2 and Lump in breast 611.72 [facility] 103 10 Oct, 2007 O[address]YN [place] [id number] [facility] 103 Sep, Lump in breast 611.72 ; OBGYN [facility] Ovarian cyst NOS 620.2 and [place], [place] [id number] Primary female infertility 628.9 [facility] 103 Aug, OBG[place] [id number] [facility] 103 Aug, Ovarian cyst NOS 620.2 [place] [place] [id number] [facility] 103 July, Ovarian cyst NOS 620.2 [place] [id number] [facility] 103 July, Ovarian cyst NOS 620.2 [place] [id number] [facility] 103 May, OBGYN [place], [place] [id number] [facility] 103 May, Ovarian cyst NOS 620.2 OBGYN [place] [id number] [facility] 103 May, Ovarian cyst NOS 620.2 [place]YN [place] [id number] [facility] 103 May, ROUTINE DRY CLEANING MANAGER EXAMINATION [facility] V72.31 ; Lump in breast [place], [place] [id number] 611.72 and Ovarian cyst NOS 620.2 IMMUNIZATIONS No Known Immunizations SOCIAL HISTORY Never Assessed REASON FOR REFERRAL FUNCTIONAL STATUS PLAN OF CARE VITAL SIGNS MEDICATIONS Unknown Medications PROCEDURES No Known procedures RESULTS No Results REASON FOR VISIT AUTH DEC 2018, Insurance Providers [facility] Health Member Patient Patient Patient Patient Patient Subscriber Subscriber Subscriber Group Insurance Plan Plan Plan Plan ID Relationship Address Phone Name Date of ID Name Date of No Type Insurance Insurance Insurance Coverage to Subscriber Address Phone Name Dates Alvion Clemens [phone] Blue self Nyla [id number] Cross/Blue [id number] Cross/Blue [place] 1 [place] [address] [place] [phone] Excellus self Nyla [id number] Blue [id number] 89 Blue [place] 45A Cross/Blue [place] Cross/Blue Shield [address] Shield Blue Cross [phone] Blue Cross self Nyla [id number] Blue [id number] 89 Blue [place] 1 [place] [address] Lifetime [phone] Lifetime self Nyla [id number] Benefit Jose Raul 48 Benefit [place] 8 Solutions [place] Solutions [phone] [phone] Orion self Nyla [id number] Care of [facility] [address] [facility] [address] Medicaid [phone] Medicaid self Nyla [id number] [facility] 00 [place] [address] Lifetime [phone] Lifetime self Nyla [id number] Benefit [place] 48 Benefit [place] 8 Solutions [place] [phone] Excellus [phone] Excellus self Nyla [id number] Blue [id number] 89 Blue [place] 5 Cross/Blue [place] Cross/Blue Shield [address] Shield [place] [phone] Excellus self Nyla [id number] Blue [address] 89 Blue [place] 9 458AM Cross/Blue [place] Cross/Blue Shield [address] Shield MEDICAL (GENERAL) HISTORY Type Description Date [...]
--- NOTE | 2019-05-09 20:06 | UC ---
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 Pleasant 49 yo female c/o sinus congestion, sinus pain, cough. Sometimes feel tight / wheezing. No fever / chills. No GI Sx started approx 8 days. No rash. + nasal d/c discolored - History of Current Complaint Stated Complaint: SINUS COMPLAINT Time Seen by Provider: 05/09/19 20:05 Hx Obtained From: Patient Hx Last Menstrual Period: 02/18/19 - Allergy/Home Medications Allergies/Adverse Reactions: Allergies Allergy/AdvReac Type Severity Reaction Status Date / Time bee venom protein (honey bee) Allergy Anaphylatic Verified 05/09/19 20:05 Shock Sulfa (Sulfonamide Allergy Swelling Verified 05/09/19 20:05 Antibiotics) Of Face,Lips,& Throat Home Medications: Home Medications Ferrous Sulfate TAB* 325 mg PO DAILY 05/09/19 [History Confirmed 05/09/19] Levothyroxine TAB* [Synthroid TAB*] 75 mcg PO DAILY 05/09/19 [History Confirmed 05/09/19] PMH/Surg Hx/FS Hx/Imm Hx Previously Healthy: Yes Other History Of: Negative For: HIV, Hepatitis B, Hepatitis C, Anticoagulant Therapy - Surgical History Surgical History: Yes Surgery Procedure, Year, and Place: 2009 LAPAROSCOPIC CHOLECYSTECTOMY, [facility]. 2011 OVA(EGG) RETRIEVAL- SED[place], [place]. WISDOM TEETH REMOVED, OFFICE. 2012 BALLOON SINUS SURGERY, [facility]. RIGHT HAND SX--2012 - Family History Known Family History: Positive: Hypertension, Diabetes - Social History Alcohol Use: Rare Substance Use Type: None Smoking Status (MU): Former Smoker Type: Cigarettes Amount Used/How Often: 1/2 PPD Length of Time of Smoking/Using Tobacco: 8 Years Have You Smoked in the Last Year: No When Did the Patient Quit Smoking/Using Tobacco: 2000 - Immunization History Most Recent Influenza Vaccination: Not the 2017/2018 Season Most Recent Tetanus Shot: UTD Most Recent Pneumonia Vaccination: N/A Vaccination Up to Date: Yes Review of Systems All Other Systems Reviewed And Are Negative: Yes Constitutional: Positive: Other - see hpi Skin: Positive: Negative Eyes: Positive: Other - see hpi ENT: Positive: Sinus Congestion - see hpi Respiratory: Positive: Cough - see hpi Cardiovascular: Positive: Negative Gastrointestinal: Positive: Negative Genitourinary: Positive: Negative Motor: Positive: Negative Neurovascular: Positive: Negative Musculoskeletal: Positive: Negative Neurological: Positive: Negative - see hpi Psychological: Positive: Negative Is Patient Immunocompromised?: No Physical Exam Triage Information Reviewed: Yes Appearance: Well-Nourished - looks tired, but nad Vital Signs Reviewed: Yes Eye Exam: Normal ENT: Positive: Pharyngeal erythema - no sores / exudates uvula midline, no airway obstruction, Nasal congestion, TM dull - L TM dull, Rtx'd. R TM nad Neck exam: Normal Respiratory Exam: Normal Respiratory: Positive: Chest non-tender, Lungs clear, Normal breath sounds, No respiratory distress, No accessory muscle use Cardiovascular Exam: Normal Cardiovascular: Positive: RRR, No Murmur, Pulses Normal, Brisk Capillary Refill Abdominal Exam: Normal - benign Abdomen Description: Positive: Nontender Musculoskeletal Exam: Normal Neurological Exam: Normal - grossly nonfocal Psychological Exam: Normal - nad Skin Exam: Normal - nondiaphoretic no visible or reported rash Course/Dx - Course Course Of Treatment: Not currently wheezing, offered rx albuterol, but declines. Reports that prednisone has helped with sinus symptoms in the past. Has fluticasone at home, will start to use this as well. Reviewed medications / allergies. Will start augmentin. RST negative Reviewed coa / tx plan. Questions as posed answered to the best of my ability. - Diagnoses Provider Diagnosis: Sinusitis Discharge ED - Sign-Out/Discharge Documenting (check all that apply): Patient Departure All imaging exams completed and their final reports reviewed: No Studies - Discharge Plan Condition: Stable Disposition: HOME Prescriptions: Amoxicillin/Clavulanate TAB* [Augmentin TAB 875*] 875 mg PO BID #19 tab Fluconazole 150 MG TAB* [Diflucan 150 MG TAB*] 150 mg PO DAILY #2 tablet predniSONE 10 mg TAB [Deltasone 10 MG TAB*] 10 mg PO DAILY #20 tab Patient Education Materials: Sinusitis (ED) Referrals: Benji Torres MD [Primary Care Provider] - - Billing Disposition and Condition Condition: STABLE Disposition: Home
[2019-05-09 20:14] VITALS: BP 144/80
[2019-05-09] MEDS ORDERED: Amoxicillin/Clavulanate TAB* 875 MG PO ONE (20:45)
== END 2019-05-09 20:54 | disposition home or self-care (01) ==
LOC: UCCORT 19:46
DX: J32.9 Chronic sinusitis, unspecified (principal); Z91.030 Bee allergy status; Z88.2 Allergy status to sulfonamides; Z87.891 Personal history of nicotine dependence
CPT/HCPCS: 87651; 99212; A9270-GY; G0463

== ENCOUNTER 2019-06-12 17:39 | Emergency (ER) | payer OTHER ==
--- OUTSIDE RECORDS SUMMARY | 2019-06-12 20:39 | XMS REPORT | Continuity of Care Document ---
:1970 External Reference #:[id number] Author Name Benji Torres MD Address [address] [place] [id number] Care Team Providers Name Role Phone [facility] - [facility]ergy & Care Team Information Stand Grinder Immunology Dave Rosas DR Care Team Information Stand Grinder [phone] - Ophthalmology Care Team Information Stand Grinder [facility] Care Team Information Stand Grinder - Mental Health Nils Greene MD - Otolaryngology Care Team Information Stand Grinder Problems Active Problems Provider Date Anxiety state Benji Torres MD Onset: 01/30/2014 Migraine without aura, not refractory Benji Torres MD Onset: 2013 Female infertility Benji Torres MD Onset: 03/10/2011 Gastroesophageal reflux disease Benji Torres MD Onset: 02/04/2008 Obesity Benji Torres MD Onset: 02/04/2008 Depressive disorder Benji Torres MD Onset: 07/31/2006 Carpal tunnel syndrome Benji Torres MD Onset: 12/27/2005 Hyperlipidemia screening Benji Torres MD Onset: 12/27/2005 Rosacea Benji Torres MD Onset: 12/27/2005 Tension-type headache Benji Torres MD Onset: 12/27/2005 Moderate recurrent major depression Benji Torres MD Onset: 10/26/2015 Pure hypercholesterolemia Benji Torres MD Onset: 10/26/2015 Vitamin B deficiency Benji Torres MD Onset: 11/21/2018 Allergic rhinitis Benji Torres MD Onset: 10/31/2016 Social History Type Date Description Comments Sex Unknown ETOH Use Occasionally consumes alcohol Tobacco Use Start: Unknown End: Patient is a former smoker quit 2000, started Unknown around 1989, <1/PPD Allergies, Adverse Reactions, Alerts Active Allergies Reaction Severity Comments Date Sulfa Drugs SWELLING, BRUSING. 04/16/2014 Medications Active Medications SIG Qnty Indications Ordering Provider Date Doxycycline Hyclate 1 by mouth twice 20tabs J01.00 Brian, 05/15/2019 a day x 10 days MD Benji 100mg Tablets (w/ food but not milk) Work Excuse She missed work Brian, 05/15/2019 today due to MD Benji acute illness Vitamin B-12 1 by mouth every OTC E53.8 Brina, 10/29/2018 1000mcg day MD Benji Tablets E53.9 Cetirizine HCL 1 by mouth every 30tabs H81.12 Benji Torres, 2018 10mg day MD Tablets J30.9 Bupropion Hydrochloride Take 1 Tablet By 90tabs F33.1 Benji Torres, 10/12/2018 ER (XL) Mouth Every MD 300mg Tablets ER Morning 24HR F41.1 Buspirone HCL Take 1 Tablet By 60tabs F41.1 Benji Torres, 2018 5mg Mouth Up To Twice MD Tablets Daily as Needed For Anxiety Meclizine HCL take 1 tablet by 30tabs R42 Benji Torres, 04/22/2018 25mg mouth 3 times daily MD Tablets as needed for dizziness Naproxen Sodium 2 pills twice a day OTC M72.2 Benji Torres, 2017 220mg as needed for pain MD Tablets w/ food M25.542 Fluticasone Propionate 1 spray each 16units H66.91 [place]j [place], DO nostril twice a 50mcg/Act Suspension day J30.9 Sumatriptan Succinate 1 by mouth every 12tabs R51 Benji Torres, 09/2013 day as needed 50mg Tablets migraine ward, may repeat x1 as needed after 1 hour; max 2/day, 6 per week G43.001 Alprazolam 1 by mouth every 30tabs F41.1 Benji Torres, 05/05/2013 1mg Tablets day as needed for MD anxiety Omeprazole Take 1 Capsule By 90caps K21.9 Benji Torres, 09/11/2012 20mg Mouth Daily MD Capsules DR De Jesus 2-Benito use as directed for 989.5 Oh Allergy and serious allergic Asthma 0.3mg/0.3ML Solution reaction Auto-Inject Paroxetine HCL Take 1 Tablet By 90tabs F41.1 Benji Torres, 10mg Mouth Every Evening MD Tablets F33.1 Levothyroxine Sodium 1 by mouth every day Nils Greene MD 50mcg Tablets Fluconazole TK 1 T PO qd For 2 Days Unknown 150mg Tablets PRF Va Yeast Infection Prednisone Unknown 10mg Tablets Immunizations CPT Code Status Date Vaccine Reaction Lot # [id number] Given 03/06/2018 Influenza Virus Vaccine,Quadrivalent,Split,Preserv Free, 0.5mL,[place] [address] Given 01/11/2015 Influenza Virus [facility] Vaccine,Quadrivalent,Split,Preserv Free, 0.5mL,[place] [address] Given 01/25/2014 Tdap (Adacel) Ages 7 And Above Only [id number] Given 12/24/2012 Afluria Or Fluvirin Flu Vac Intramuscular Q2035 Refused 11/05/2017 Afluria Imunization Q2035 Refused 07/03/2017 Afluria Imunization Vital Signs Date Vital Result Comment 05/15/2019 11:02am Body Temperature 97.8 F Weight 281.00 lb Heart Rate 84 /min BP Systolic 120 mmHg BP Diastolic 80 mmHg Respiratory Rate 18 /min O2 % BldC Oximetry 98 % Ra 11/21/2018 9:32am Weight 282.00 lb Heart Rate 60 /min BP Systolic 130 mmHg BP Diastolic 92 mmHg Respiratory Rate 18 /min Height 68.5 inches 5'8.50" BMI (Body Mass Index) 42.2 kg/m2 Results Test Acquired Date Facility Test Result H/L Range Note Laboratory test 05/09/2019 [facility] Rapid Strep Negative Negative 1 finding Molecular Laboratory test 01/08/2019 [facility] Glucose 109 mg/dL High 70-105 2 finding Vitamin B12 227 pg/mL 180-914 CBC with Auto Diff-fcmg 01/08/2019 [facility] WBC 6.2 K/uL 4.1-11.0 RBC 4.19 M/uL 4.00-5.40 Hemoglobin 13.2 gm/dL 12.0-16.0 Hematocrit 38.2 % 36.0-47.0 MCV 91.1 fL 80.0-97.0 MCH 31.5 pg 27.0-32.0 MCHC 34.6 g/dL 32.0-36.0 RDW 13.5 % 11.5-14.5 PLT Count 243 K/ul 140-400 MPV 8.1 FL 7.1-10.7 Neutrophil 62.2 % 35.0-75.0 Lymphocyte 28.1 % 16.0-52.0 Monocyte 7.0 % 2.0-10.0 Eosinophil 2.2 % 0.0-5.0 Basophil 0.5 % 0.0-4.0 Abs Neutrophils 3.9 K/uL 2.1-8.0 Abs Lymphocytes 1.7 K/uL 0.8-5.5 Abs Monocytes 0.4 K/uL 0.1-1.0 Abs Eosinophils 0.1 K/uL 0.0-0.5 Abs Basophils 0.0 K/uL 0.0-0.3 Drugs Of 11/21/2018 [facility] Amphetamines,Urine NEGATIVE <1000 ng/mL Abuse,Urine-[facility] Barbiturates,Urine NEGATIVE <200 ng/mL Benzodiazepines, Urine NEGATIVE <200 ng/mL Bupernorphrine/Norbu,Urine NEGATIVE <10 ng/mL Cocaine Metabolites,Urine NEGATIVE <300 ng/mL Methadone,Urine NEGATIVE <300 ng/mL Opiates,Urine NEGATIVE <300 ng/mL Oxycodone,Urine NEGATIVE <100 ng/mL Phencyclidine,Urine NEGATIVE <25 ng/mL Cannabinoids,Urine NEGATIVE <50 ng/mL 1 Corporate General Manager: [id number] Suboptimal collection technique may reduce sensitivity of test. Refer to the [facility] Test Catalog for collection information: [email or web address] As with all diagnostic procedures, the laboratory results obtained should be used in conjunction with other clinical information available to the physician, including confirmation by another method, as applicable. 2 FOR EARLY 01/18: SHE'LL CALL Procedures Date Code Description Status 05/15/2019 48601 Measure Blood Oxygen Level Single Determination Completed 03/04/2019 68521805 Mammogram Completed 11/21/2018 45461 Brief Emotional/Behav Assessment W/ Scoring Doc Per Completed Standard Inst Medical Devices Description No Information Available Encounters Type Date Location Provider Dx Diagnosis Office Visit 11/21/2018 [facility] Brian, K21.9 Gastro-esophageal 10:00a MD Benji reflux disease without esophagitis E78.00 Pure hypercholesterolemia, unspecified G43.001 Migraine w/o aura, not intractable, with status migrainosus F33.1 Major depressive disorder, recurrent, moderate J30.9 Allergic rhinitis, unspecified F41.1 Generalized anxiety disorder Z68.41 Body mass index (BMI) 40.0-44.9, adult E66.01 Morbid (severe) obesity due to excess calories E53.9 Vitamin B deficiency, unspecified R73.01 Impaired fasting glucose Z79.899 Other oil heaterman (current) drug therapy G47.9 Sleep disorder, unspecified Assessments Date Code Description Provider 05/15/2019 J01.00 Acute maxillary sinusitis Benji Torres MD 01/08/2019 R73.01 Impaired fasting glucose Benji Torres MD 01/08/2019 R73.01 Impaired fasting glucose Schedule, Laboratory 01/08/2019 E53.8 Deficiency of other specified B group Benji Torres MD vitamins 01/08/2019 E53.8 Deficiency of other specified B group Schedule, Laboratory vitamins 01/08/2019 D64.9 Anemia, unspecified Benji Torres MD 01/08/2019 D64.9 Anemia, unspecified Schedule, Laboratory 01/08/2019 R73.01 Impaired fasting glucose [facility] 01/08/2019 E53.8 Deficiency of other specified B group [facility] vitamins 01/08/2019 D64.9 Anemia, unspecified [facility] 11/21/2018 K21.9 Gastro-esophageal reflux disease without Benji Torres MD esophagitis 11/21/2018 E78.00 Pure hypercholesterolemia, unspecified Benji Torres MD 11/21/2018 G43.001 Migraine without aura, not refractory Benji Torres MD 11/21/2018 F33.1 Major depressive disorder, recurrent, Benji Torres MD moderate 11/21/2018 J30.9 Allergic rhinitis, unspecified Benji Torres MD 11/21/2018 F41.1 Anxiety state Benji Torres MD 11/21/2018 Z68.41 Body mass index (BMI) 40.0-44.9, adult Benji Torres MD 11/21/2018 E66.01 Morbid (severe) obesity due to excess Benji Torres MD calories 11/21/2018 E53.9 Vitamin B deficiency, unspecified Benji Torres MD 11/21/2018 R73.01 Impaired fasting glucose Benji Torres MD 11/21/2018 Z79.899 Other oil heaterman (current) drug therapy Benji Torres MD 11/21/2018 G47.9 Sleep disorder, unspecified Benji Torres MD 11/21/2018 Z79.899 Other oil heaterman (current) drug therapy [facility] Plan of Treatment Future Appointment(s):05/21/2019 8:05 am - Schedule, Laboratory at [facility]2019 8:15 am - Benji Torres MD at [facility]05/15/2019 - Benji Torres MDJ01.00 Acute maxillary sinusitisNew Medication:Doxycycline Hyclate 100 mg - 1 by mouth twice a day x 10 days (w/ food but not milk)Follow up:Follow up as scheduled Functional Status Description No Information Available Mental Status Description No Information Available Referrals Description No Information Available
[2019-06-12 20:49] VITALS: BP 151/91
[2019-06-12] MEDS ORDERED: Acetaminophen TAB* 325 MG PO ONE (20:51)
--- NOTE | 2019-06-12 21:32 | UC ---
Elbow Pain - History of Current Complaint Chief Complaint: UCUpperExtremity Stated Complaint: RIGHT ARM INJURY Time Seen by Provider: 06/12/19 20:47 Hx Obtained From: Patient Hx Last Menstrual Period: irregular-per patient Pain Intensity: 7 - Allergies/Home Medications Allergies/Adverse Reactions: Allergies Allergy/AdvReac Type Severity Reaction Status Date / Time bee venom protein (honey bee) Allergy Anaphylatic Verified 06/12/19 20:47 Shock Sulfa (Sulfonamide Allergy Swelling Verified 06/12/19 20:47 Antibiotics) Of Face,Lips,& Throat Home Medications: Home Medications PARoxetine HCL TAB* [Paxil TAB*] 10 mg PO DAILY 01/31/13 [History Confirmed 03/21] BuPROPion XL* [Bupropion XL*] 300 mg PO QAM 03/07/17 [History Confirmed 06/12/19 ] Omeprazole CAP (NF) [Prilosec CAP* 20 MG] 20 mg PO QAM 03/07/17 [History Confirmed 06/12/19] Cetirizine* [ZyrTEC 10 MG TAB*] 10 mg PO DAILY 07/10/17 [History Confirmed 06/11] Ibuprofen TAB* [Motrin TAB* 800 MG] 400 mg PO ONCE 06/28/18 [History Confirmed 06/12/19] ALPRAZolam TAB* [Xanax TAB*] 0.5 mg PO TID PRN 09/17/18 [History Confirmed 06/11] Ferrous Sulfate TAB* 325 mg PO DAILY 05/09/19 [History Confirmed 06/12/19] PMH/Surg Hx/FS Hx/Imm Hx GI/ History: Gastroesophageal Reflux Psychological History: Anxiety, Depression Other History Of: Negative For: HIV, Hepatitis B, Hepatitis C, Anticoagulant Therapy - Surgical History Surgical History: Yes Surgery Procedure, Year, and Place: 2009 LAPAROSCOPIC CHOLECYSTECTOMY, [facility]. 2011 OVA(EGG) RETRIEVAL- [facility], [place]. WISDOM TEETH REMOVED, [facility]. 2012 BALLOON SINUS SURGERY, [facility] [place], [place]. RIGHT HAND SX--2012 - Family History Known Family History: Positive: Hypertension, Diabetes - Social History Occupation: Employed Full-time Lives: Alone Alcohol Use: Rare Substance Use Type: None Smoking Status (MU): Former Smoker Type: Cigarettes Amount Used/How Often: 1/2 PPD Length of Time of Smoking/Using Tobacco: 8 Years Have You Smoked in the Last Year: No When Did the Patient Quit Smoking/Using Tobacco: 2000 - Immunization History Most Recent Influenza Vaccination: Not the 2017/2017 Season Most Recent Tetanus Shot: UTD Most Recent Pneumonia Vaccination: N/A Vaccination Up to Date: Yes Review of Systems All Other Systems Reviewed And Are Negative: Yes Constitutional: Positive: Negative Skin: Negative: Bruising Respiratory: Positive: Negative Cardiovascular: Positive: Negative Gastrointestinal: Positive: Negative Genitourinary: Positive: Negative Motor: Negative: Weakness Neurovascular: Negative: Decreased Sensation Musculoskeletal: Positive: Other: - See HPI. Negative: Decreased ROM Neurological/Mental Status: Positive: Negative Is Patient Immunocompromised?: No Physical Exam - Summary Physical Exam Summary: GENERAL APPEARANCE: Well developed, well nourished, alert and cooperative, and appears to be in no acute distress. CARDIAC: Normal S1 and S2. No S3, S4 or murmurs. Rhythm is regular. There is no peripheral edema, cyanosis or pallor. Extremities are warm and well perfused. Capillary refill is less than 2 seconds. Peripheral pulses intact. LUNGS: Clear to auscultation without rales, rhonchi, wheezing or diminished breath sounds. ABDOMEN: Positive bowel sounds. Soft, nondistended, nontender. No guarding or rebound. No masses or hepatosplenomegally. MUSKULOSKELETAL: ROM intact to all extremities. No joint erythema or tenderness. Normal muscular development. Normal gait. EXTREMITIES: Significant tenderness to the medial epicondyle with mild tenderness to the lateral epicondyle of the right elbow without gross deformity , ecchymosis, or edema. Full range of motion. Circulation and sensation intact. Right shoulder and right wrist were nontender with full range of motion. SKIN: Skin normal color, texture and turgor with no lesions or eruptions. Triage Information Reviewed: Yes Vital Signs: Initial Vital Signs Temp 98.1 F 06/12/19 20:44 Pulse 77 06/12/19 20:44 Resp 18 06/12/19 20:44 BP 151/91 06/12/19 20:44 Pulse Ox 100 06/12/19 20:44 Vital Signs Reviewed: Yes Diagnostics - Radiology No standard instances Radiology Interpretation Completed By: ED Physician - No acute fracture or dislocation. Elbow Pain Course/Dx - Course Course Of Treatment: 49-year-old female is with complaints of right elbow pain. States last evening she was playing with her bull mastiff, reached out her arm to try to stop and on , and the dog ran into her arm causing a hyperextension injury to the elbow. States initially had very little pain however woke up this morning with significantly more pain. Pain worsens with movement especially supination and pronation. Took ibuprofen 400 mg 1 dose with little relief in pain. Denies any numbness or tingling. Afebrile. Hypertensive otherwise vital signs stable. Patient had significant tenderness to the medial epicondyle with mild tenderness to the lateral epicondyle of the right elbow without gross deformity , ecchymosis, or edema, full range of motion with circulation and sensation intact. Remainder of exam was unremarkable. Patient was given acetaminophen 975 mg PO for the pain. Preliminary reading of the x-ray showed no acute fracture or dislocation. Reviewed results with the patient. Recommending conservative treatment for a right elbow sprain including use of sling, over-the -counter analgesics, and RICE. Patient was instructed not to use the sling for more than 2-3 days and to perform gentle range of motion exercises every 1-2 hours while awake. She is to follow-up with orthopedic surgery in 5-7 days if symptoms are not improving. Respiratory guidance and warning symptoms were reviewed with the patient. Verbalizes understanding and agrees with plan of care. - Differential Dx/Diagnosis Provider Diagnosis: Injury of right elbow Discharge ED - Sign-Out/Discharge Documenting (check all that apply): Patient Departure All imaging exams completed and their final reports reviewed: No - Discharge Plan Condition: Stable Disposition: HOME Patient Education Materials: Elbow Sprain (ED) Referrals: Benji Torres MD [Primary Care Provider] - John Shine MD [Medical Doctor] - 5 Days (Call for an appointment.) Additional Instructions: The x-ray performed in the clinic today showed no evidence of a fracture. The x -ray will be reviewed by the radiologist tomorrow we will contact you if they see anything changes your plan of care. Rest the arm as much as possible. Use the sling that was provided to you for the next 2 days for support and comfort. It is important that you take your arm out of the sling and do some gentle range of motion exercises every 1-2 hours while awake to prevent the elbow from freezing up. Apply ice to the affected area for 15-20 minutes at least 4 times a day to help with the pain and swelling. Elevate the arm to help reduce swelling. Take acetaminophen (Tylenol) or ibuprofen (Advil, Motrin) according to directions as needed for pain. Follow up with orthopedic surgery in 5-7 days if symptoms do not improve. Seek immediate medical attention if you have severe pain not managed with pain medication, you lose function of the arm, develop numbness or tingling in the arm, hand, or fingers, or have any worsening of symptoms. - Billing Disposition and Condition Condition: STABLE Disposition: Home - Attestation Statements Provider Attestation: This patient was not seen by me. I was available for consult. Chart reviewed. CHELY
--- NOTE | 2019-06-13 09:54 | UC ---
- Progress Note Progress Note: Reviewed radiology report: Per Dr. Bond: no acute fracture or dislocation. No change from wet read. Course/Dx - Diagnoses Provider Diagnoses: Injury of right elbow Discharge ED - Sign-Out/Discharge Documenting (check all that apply): Post-Discharge Follow Up All imaging exams completed and their final reports reviewed: Yes - Discharge Plan Condition: Stable Disposition: HOME Patient Education Materials: Elbow Sprain (ED) Referrals: Benji Torres MD [Primary Care Provider] - John Shine MD [Medical Doctor] - 5 Days (Call for an appointment.) Additional Instructions: The x-ray performed in the clinic today showed no evidence of a fracture. The x -ray will be reviewed by the radiologist tomorrow we will contact you if they see anything changes your plan of care. Rest the arm as much as possible. Use the sling that was provided to you for the next 2 days for support and comfort. It is important that you take your arm out of the sling and do some gentle range of motion exercises every 1-2 hours while awake to prevent the elbow from freezing up. Apply ice to the affected area for 15-20 minutes at least 4 times a day to help with the pain and swelling. Elevate the arm to help reduce swelling. Take acetaminophen (Tylenol) or ibuprofen (Advil, Motrin) according to directions as needed for pain. Follow up with orthopedic surgery in 5-7 days if symptoms do not improve. Seek immediate medical attention if you have severe pain not managed with pain medication, you lose function of the arm, develop numbness or tingling in the arm, hand, or fingers, or have any worsening of symptoms. - Billing Disposition and Condition Condition: STABLE Disposition: Home
== END 2019-06-12 21:43 | disposition home or self-care (01) ==
LOC: UCCORT 17:39
DX: S59.901A Unspecified injury of right elbow, initial encounter (principal); K21.9 Gastro-esophageal reflux disease without esophagitis; F41.9 Anxiety disorder, unspecified; F32.9 Major depressive disorder, single episode, unspecified; I10 Essential (primary) hypertension; Z88.2 Allergy status to sulfonamides; Z91.030 Bee allergy status; Z79.899 Other long term (current) drug therapy; X50.9XXA Other and unspecified overexertion or strenuous movements or postures, initial encounter; Y93.89 Activity, other specified; Y92.9 Unspecified place or not applicable
CPT/HCPCS: 99212; A9270-GY; G0463